=== PATIENT | female | born 1940 | race Caucasian/White ===

== ENCOUNTER → 2020-03-26 | Outpatient (CLI) | payer MEDICARE ==
--- NOTE | 2020-03-26 14:01 | XR ---
EXAMINATION TYPE: XR chest 2V DATE OF EXAM: 03/26/2020 COMPARISON: NONE HISTORY: Weakness and shortness of breath. TECHNIQUE: Frontal and lateral views of the chest are obtained. FINDINGS: There is chronic parenchymal changes bilaterally without suspicious focal air space opacit y, pleural effusion, or pneumothorax seen. The cardiac silhouette size is upper limits of normal wit h dual-lead pacemaker/defibrillator and atherosclerotic aorta. Cholecystectomy clips noted. The osse ous structures are intact. IMPRESSION: Chronic changes without acute pulmonary process.
== END | disposition home or self-care (01) ==
LOC: RADXRMAIN 13:32
PROVIDERS: ATTEND Family Medicine
DX: R06.09 Other forms of dyspnea (principal)
CPT/HCPCS: 71046

== ENCOUNTER → 2020-04-02 | Outpatient (CLI) | payer MEDICARE ==
[~2020-04-02] MED LIST: REGADENOSON 0.4 MG/5 ML SYRINGE IV PRN
--- NOTE | 2020-04-02 10:22 | ECHOF ---
Referral Reason:I10 hypertension, R06.09 Other forms of dyspnea MEASUREMENTS -------- HEIGHT: 154.9 cm WEIGHT: 52.2 kg BP: IVSd: 1.2 cm (0.6 - 1.1) LVIDd: 2.7 cm (3.9 - 5.3) LVPWd: 1.3 cm (0.6 - 1.1) IVSs: 1.5 cm LVIDs: 2.1 cm LVPWs: 1.8 cm LAESV Index (A-L): 16.18 ml/m Ao Diam: 3.0 cm (2.0 - 3.7) AV Cusp: 1.0 cm (1.5 - 2.6) LA Diam: 2.2 cm (2.7 - 3.8) MV EXCURSION: 7.820 mm (> 18.000) MV EF SLOPE: 36 mm/s (70 - 150) EPSS: 0.7 cm MV E Td: 0.46 m/s MV DecT: 288 ms MV A Td: 0.75 m/s MV E/A Ratio: 0.61 RAP: 5.00 mmHg RVSP: 25.94 mmHg FINDINGS -------- Pacerwire seen in RV and RA. This was a technically adequate study. The left ventricular size is normal. There is mild concentric left ventricular hypertrophy. There is mild global hypokinesis of LV . Overall left ventricular systolic function is mildly impaired w ith, an EF between 45 - 50 %. The right ventricle is normal in size. The left atrial size is normal. Normal LA size by volume 22+/-6 ml/m2. The right atrial size is normal. Interatrial and interventricular septum intact. There is mild aortic valve sclerosis. The mitral valve leaflets are mildly thickened. Mild mitral regurgitation is present. The tricuspid valve appears structurally normal. Mild tricuspid regurgitation present. Right vent ricular systolic pressure is normal at < 35 mmHg. Trace/mild (physiologic) pulmonic regurgitation. The aortic root size is normal. Normal inferior vena cava with normal inspiratory collapse consistent with estimated right atrial pre ssure of 5 mmHg. There is a small, generalized pericardial effusion present. CONCLUSIONS -------- 1. Pacerwire seen in RV and RA. 2. There is mild concentric left ventricular hypertrophy. 3. There is mild global hypokinesis of LV . 4. Overall left ventricular systolic function is mildly impaired with, an EF between 45 - 50 %. 5. There is mild aortic valve sclerosis. 6. Mild mitral regurgitation is present. 7. Mild tricuspid regurgitation present. 8. Trace/mild (physiologic) pulmonic regurgitation. 9. There is a small, generalized pericardial effusion present. DIGITAL PHOTO PRINTER: Viridiana Sparks RDCS
--- NOTE | 2020-04-02 12:00 | NM ---
EXAMINATION TYPE: NM stress lexiscan cardiolite DATE OF EXAM: 04/02/2020 COMPARISON: NONE HISTORY: I10 hypertension, R06.09 Other forms of dyspnea TECHNIQUE: After the intravenous administration of 9.56 mCi Tc 99m Sestamibi - Cardiolite resting SP ECT images acquired 50 minutes post injection. The patient received 0.4mg Lexiscan, 25.1 mCi Tc 99m Sestamibi - Stress images obtained [address] injection FINDINGS: Review of stress and rest SPECT images demonstrates decreased perfusion on stress imaging involving t he posteroseptal wall. I cannot exclude stress-induced ischemia. Gated analysis shows normal wall mot ion with an estimated left ventricular ejection fraction of 51 %. IMPRESSION: Decreased perfusion on stress imaging involving the posteroseptal wall. I cannot exclude stress-induc ed ischemia.
--- NOTE | 2020-04-02 12:15 | EST ---
EXERCISE STRESS DATE OF SERVICE: 04/02/2020 AGE: 80 SEX: Female HT: 61" WT: 115 lbs PROTOCOL: Lexiscan Cardiolite STAGE: DURATION OF EXERCISE: HEART RATE REST: 65 BLOOD PRESSURE REST: 111/52 MAXIMUM HEART RATE ACHIEVED: 67 MAXIMUM BLOOD PRESSURE: 137/67 85% MPHR: 117 100% MPHR: 138 METS: INDICATIONS: Chest pain. RESULTS: Baseline rhythm is a sinus mechanism with evidence of a dual-chamber pacemaker. Heart rate of 65. Baseline blood pressure 137/76 mmHg. Patient received injection of Lexiscan. Electrocardiograph monitoring revealed no evidence of diagnostic ischemic ST deviation. Cardiolite was injected per protocol. CONCLUSION: 1. Nondiagnostic electrocardiograph stress testing. 2. Nuclear images will be reported separately. MMODL / IJN: [id number] /
== END | disposition home or self-care (01) ==
LOC: RADNMMAIN 08:01
PROVIDERS: ATTEND Family Medicine
DX: I08.1 Rheumatic disorders of both mitral and tricuspid valves (principal); I31.3 Pericardial effusion (noninflammatory); I09.89 Other specified rheumatic heart diseases; R06.09 Other forms of dyspnea; I10 Essential (primary) hypertension
CPT/HCPCS: 93017; 93306; 78452; A9500; J2785

== ENCOUNTER → 2020-04-12 | Outpatient (CLI) | payer MEDICARE ==
[2020-04-12 13:28] LABS: HCT 42.8 % (34.0-46.0); HGB 13.5 gm/dL (11.4-16.0); MCH 30.4 pg (25.0-35.0); MCHC 31.5 g/dL (31.0-37.0); MCV 96.8 fL (80.0-100.0); Mean Platelet Volume 8.4; Platelet Count 141 k/uL (150-450); RBC 4.42 m/uL (3.80-5.40); RDW 13.3 % (11.5-15.5); WBC 7.6 k/uL (3.8-10.6)
[2020-04-12 13:35] LABS: Potassium 5.2 mmol/L (3.5-5.1)
== END | disposition home or self-care (01) ==
LOC: LABPAT 12:05
PROVIDERS: ATTEND Internal Medicine Cardiovascular Disease
DX: Z01.818 Encounter for other preprocedural examination (principal); R93.1 Abnormal findings on diagnostic imaging of heart and coronary circulation
CPT/HCPCS: 36415; 80051; 82565; 84520; 85027

== ENCOUNTER 2020-04-19 07:22 | Day surgery (SDC) | payer MEDICARE ==
[2020-04-17 11:58] VITALS: BMI 22.1
[~2020-04-19 07:22] MED LIST changes: +ALPRAZolam 0.25 MG TAB PO PRN; +ALPRAZolam 0.5 MG TAB PO PRN; +ASPIRIN 325 MG TAB PO STA; +ATORVASTATIN 80 MG TAB PO STA; +NITROGLYCERIN SL TABS 0.4 MG TAB SUBLINGUAL PRN; -REGADENOSON 0.4 MG/5 ML SYRINGE IV PRN; +SODIUM CHLORIDE 0.9% 1,000 ML in EMPTY BAG 1 BAG IV ONE
[2020-04-19 07:54] VITALS: RESP 16; TEMP 97.9
[2020-04-19] MEDS ORDERED: fentaNYL (PF) 50 MCG/ML 2 ML AMP IVP ONE (09:19)
[2020-04-19] MEDS ORDERED: MIDAZOLAM 2 MG/2 ML VIAL IVP ONE (09:19)
[2020-04-19] MEDS ORDERED: LIDOCAINE 1% INJ 10MG/ML (20 ML MDV) SQ ONE (09:21)
[2020-04-19] MEDS ORDERED: IOPAMIDOL-370 125ML BTL INJ ONE (09:32)
[2020-04-19] MEDS ORDERED: SODIUM CHLORIDE 0.9% 1,000 ML IV SCH (09:45)
[2020-04-19] MEDS ORDERED: RX INFO: IV CONTRAST WAS GIVEN 1 EACH MISC MISCELLANE PRN (09:45)
--- NOTE | 2020-04-19 11:59 | CC ---
CARDIAC CATHETERIZATION REPORT INDICATION: Abnormal stress test. PROCEDURE NOTE: After obtaining informed consent, left heart catheterization and coronary angiogram are performed via the right femoral artery using standard Stephanie catheters. Patient tolerated the procedure well without any obvious immediate complications. A femoral angiogram was performed and Angio-Seal was deployed for hemostasis. Patient received moderate conscious sedation and total sedation time was 12 minutes. FINDINGS: 1. HEMODYNAMICS: Left ventricular end-diastolic pressure is 8 to 12 mm. There is no significant gradient across the aortic valve. 2. LEFT VENTRICULOGRAM: Left ventriculogram is not performed. 3. ANGIOGRAPHIC DATA: Left Main Coronary Artery: Left main coronary artery appears calcified but is free of significant stenosis. Divides into left anterior descending coronary artery and circumflex coronary artery. LAD and its branches, circumflex coronary artery and its branches are free of significant stenosis. CONCLUSION: 1. No significant coronary artery disease. 2. Normal left ventricular end-diastolic pressures. PLAN: Patient is doing well. Her stress test is a false positive stress test. I will continue her on current medications and follow up with me in a week's time. MMODL / IJN: [id number] /
[2020-04-19 16:25] VITALS: BP 114/60; PULSE 60
== END 2020-04-19 14:45 | disposition home or self-care (01) ==
LOC: CATHCVL 07:22
PROVIDERS: ATTEND Internal Medicine Cardiovascular Disease
DX: I25.10 Atherosclerotic heart disease of native coronary artery without angina pectoris (principal); I25.84 Coronary atherosclerosis due to calcified coronary lesion; R94.39 Abnormal result of other cardiovascular function study; R60.0 Localized edema; I10 Essential (primary) hypertension; E78.5 Hyperlipidemia, unspecified; Z82.49 Family history of ischemic heart disease and other diseases of the circulatory system; Z95.0 Presence of cardiac pacemaker; Z79.82 Long term (current) use of aspirin; Z79.890 Hormone replacement therapy; Z79.899 Other long term (current) drug therapy
CPT/HCPCS: 93458; 84132; C1760; C1894; C1769; J2250; J2001; J3010; Q9967

== ENCOUNTER → 2020-05-28 | Outpatient (CLI) | payer MEDICARE ==
--- NOTE | 2020-05-29 16:07 | BD ---
EXAMINATION TYPE: Axial Bone Density DATE OF EXAM: 05/28/2020 COMPARISON: NONE CLINICAL HISTORY: Postmenopausal without hormonal replacement therapy Height: 60 IN Weight: 113 LBS RISK FACTORS HISTORY OF: Active: LIMITED Postmenopausal woman: APPROX AGE 48 Frequent falls: YES KNEES GIVE OUT MEDICATIONS: Thyroid Medications: YES Which medication: Levothyroxine How Lon+ YEARS Additional Medications: CALCIUM, AMLODIPINE, ASPIRIN, FUROSEMIDE, LEVOTHYROXINE,METOPROLOL, ROSUVASTA TIN, TRIAMCINLONE, PRESERVISION, CLEAR LAX EXAM MEASUREMENTS: Bone mineral densitometry was performed using the [employer] System. Bone mineral density as measured about the Lumbar spine is: ----- L1-L4(G/cm2): 1.186 T Score Values are as follows: ----- L2: 0.7 ----- L3: 0.8 ----- L4: -0.6 ----- L1-L4: 0.0 Bone mineral density BASELINE Bone mineral density about the R hip (g/cm2): 0.680 Bone mineral density about the L hip (g/cm2): 0.658 T Score values are as follows: -----R Neck: -2.6 -----L Neck: -2.7 -----R Total: -3.0 -----L Total: -3.1 Bone mineral density BASELINE IMPRESSION: Osteoporosis (T Score less than -2.5). There is increased fracture risk and therapy is usually indicated based on age. Re-Screen 1-2 years. NOTE: T-SCORE=SD OF THE YOUNG ADULT MEAN.
--- NOTE | 2020-05-30 10:14 | MM ---
Reason for exam: screening (asymptomatic). History: Patient is postmenopausal. Physical Findings: A clinical breast exam by your physician is recommended on an annual basis and results should be correlated with mammographic findings. MG 3D Screening Mammo W/Cad Bilateral CC and MLO view(s) were taken. There are scattered fibroglandular densities. No significant changes when compared with prior studies. ASSESSMENT: Negative, BI-RAD 1 RECOMMENDATION: Routine screening mammogram of both breasts in 1 year.
== END | disposition home or self-care (01) ==
LOC: RADBDWWP 15:57
PROVIDERS: ATTEND Family Medicine
DX: Z12.31 Encounter for screening mammogram for malignant neoplasm of breast (principal); M81.0 Age-related osteoporosis without current pathological fracture
CPT/HCPCS: 77063; 77067; 77080

== ENCOUNTER 2020-08-21 17:08 | Inpatient (IN) | payer MEDICARE ==
--- NOTE | 2020-08-21 17:53 | ED ---
General Adult HPI - General Chief complaint: Fall Stated complaint: Fall Time Seen by Provider: 08/21/20 17:29 Source: patient, EMS, RN notes reviewed, old records reviewed Mode of arrival: EMS - History of Present Illness Initial comments: 80-year-old female presents status post fall with head injury. Patient believes that her defibrillator had gone off she felt weak, and fell backwards striking her head. Her main complaint is headache. She denies any back pain. Denies c hest pain or abdominal pain. Denied any preceding palpitations. No nausea or vomiting. - Related Data Home Medications Medication Instructions Recorded Confirmed Furosemide [Lasix] 20 mg PO DAILY 04/17/20 08/21/20 Levothyroxine Sodium [Synthroid] 25 mcg PO DAILY 04/17/20 08/21/20 Rosuvastatin Calcium [Crestor] 5 mg PO DAILY 04/17/20 08/21/20 Amlodipine Besylate/Valsartan 1 each PO DAILY 04/19/20 08/21/20 [Amlodipine-Valsartan 10-320 mg] Metoprolol Succinate (ER) [Toprol 50 mg PO DAILY 08/21/20 08/21/20 XL] Risedronate Sodium [Actonel] 150 mg PO Q28D 08/21/20 08/21/20 Allergies Allergy/AdvReac Type Severity Reaction Status Date / Time No Known Allergies Allergy Verified 08/21/20 18:52 Review of Systems ROS Statement: Those systems with pertinent positive or pertinent negative responses have been documented in the HPI. ROS Other: All systems not noted in ROS Statement are negative. Past Medical History Past Medical History: Diabetes Mellitus, Hypertension, Liver Disease, Thyroid Disorder Additional Past Medical History / Comment(s): SOB w/exertion, just moved here from [place] in Jan., was in hospital there for had irregular heart beat, had pacemaker inserted, uses walker, used to take diabetic meds in past in 2017 approx. 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 Past Anesthesia/Blood Transfusion Reactions: No Reported Reaction Type of Cardiac Device: Permanent Pacemaker Device Placement Date:: 2019 Past Psychological History: No Psychological Hx Reported Smoking Status: Never smoker General Exam General appearance: alert, in no apparent distress Head exam: Present: atraumatic, normocephalic, other ( no repairable laceration.) Eye exam: Present: normal appearance, PERRL ENT exam: Present: normal exam Neck exam: Present: normal inspection, other (C-collar placed by EMS) Cardiovascular Exam: Present: regular rate, normal rhythm GI/Abdominal exam: Present: soft. Absent: distended, tenderness, guarding Extremities exam: Present: normal inspection, normal capillary refill. Absent: pedal edema, calf tenderness Neurological exam: Present: alert, oriented X3, CN II-XII intact. Absent: motor sensory deficit Psychiatric exam: Present: normal affect, normal mood Skin exam: Present: warm, dry, intact. Absent: cyanosis, diaphoretic Course Vital Signs 08/21/20 08/21/20 17:16 18:57 Temperature 97.8 F Pulse Rate 81 82 Respiratory 18 18 Rate Blood Pressure 163/88 165/84 O2 Sat by Pulse 100 100 Oximetry - Reevaluation(s) Reevaluation #1: 08/21/20 20:16 Patient and daughter are uncertain of what brand pacemaker defibrillator. Daughter is attempting to obtain the info. EKG Findings - EKG Comments: EKG Findings:: EKG obtained at 249, ventricular paced rhythm with PVC, rate of 81, QRS duration 156, QTC 522. EKG obtained at 1750 narrow complex rhythm, rate of 78, sinus rhythm or accelerated junctional rhythm QRS duration 118, QTC 440, PVC present Medical Decision Making - Medical Decision Making 80-year-old female with suspected defibrillator by AICD and subsequent fall with head injury. Head CT performed, showing several calcified meningiomas but no acute intracranial hemorrhage or mass effect. Cervical spine negative for fract ure subluxation. Chest x-ray and pale pelvis x-ray are negative for traumatic injury. Patient has had episodes of paced rhythm, with some runs of V. tach, no sustained ventricular tachycardia. I did discuss case. With the admitting team, Corwin borges for Dr. Gorman as well as Dr. Gabbie borges for cardiology. Recommends an additional dose of metoprolol XL. 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 Patient will be monitored on telemetry. - Lab Data Result diagrams: 08/21/20 18:51 08/21/20 18:51 Lab Results 08/21/20 08/21/20 08/21/20 Range/Units 18:51 18:51 18:51 WBC 7.3 (3.8-10.6) k/uL RBC 4.22 (3.80-5.40) m/uL Hgb 13.3 (11.4-16.0) gm/dL Hct 39.9 (34.0-46.0) % MCV 94.5 (80.0-100.0) fL MCH 31.5 (25.0-35.0) pg MCHC 33.4 (31.0-37.0) g/dL RDW 12.8 (11.5-15.5) % Plt Count 144 L (150-450) k/uL MPV 8.5 Neutrophils % 71 % Lymphocytes % 18 % Monocytes % 7 % Eosinophils % 3 % Basophils % 0 % Neutrophils # 5.2 (1.3-7.7) k/uL Lymphocytes # 1.3 (1.0-4.8) k/uL Monocytes # 0.5 (0-1.0) k/uL Eosinophils # 0.2 (0-0.7) k/uL Basophils # 0.0 (0-0.2) k/uL PT 9.8 (9.0-12.0) sec INR 0.9 (<1.2) APTT 20.6 L (22.0-30.0) sec Sodium 145 (137-145) mmol/L Potassium 5.4 H (3.5-5.1) mmol/L Chloride 112 H (98-107) mmol/L Carbon Dioxide 26 (22-30) mmol/L Anion Gap 7 mmol/L BUN 36 H (7-17) mg/dL Creatinine 0.71 (0.52-1.04) mg/dL Est GFR (CKD-EPI)AfAm >90 (>60 ml/min/1.73 sqM) Est GFR (CKD-EPI)NonAf 80 (>60 ml/min/1.73 sqM) Glucose 140 H (74-99) mg/dL Calcium 10.3 H (8.4-10.2) mg/dL Magnesium 2.4 H (1.6-2.3) mg/dL Total Bilirubin 0.5 (0.2-1.3) mg/dL AST 34 (14-36) U/L ALT 19 (4-34) U/L Alkaline Phosphatase 103 (38-126) U/L Troponin I (0.000-0.034) ng/mL Total Protein 7.2 (6.3-8.2) g/dL Albumin 4.4 (3.5-5.0) g/dL 08/21/20 Range/Units 18:51 WBC (3.8-10.6) k/uL RBC (3.80-5.40) m/uL Hgb (11.4-16.0) gm/dL Hct (34.0-46.0) % MCV (80.0-100.0) fL MCH (25.0-35.0) pg MCHC (31.0-37.0) g/dL RDW (11.5-15.5) % Plt Count (150-450) k/uL MPV Neutrophils % % Lymphocytes % % Monocytes % % Eosinophils % % Basophils % % Neutrophils # (1.3-7.7) k/uL Lymphocytes # (1.0-4.8) k/uL Monocytes # (0-1.0) k/uL Eosinophils # (0-0.7) k/uL Basophils # (0-0.2) k/uL PT (9.0-12.0) sec INR (<1.2) APTT (22.0-30.0) sec Sodium (137-145) mmol/L Potassium (3.5-5.1) mmol/L Chloride (98-107) mmol/L Carbon Dioxide (22-30) mmol/L Anion Gap mmol/L BUN (7-17) mg/dL Creatinine (0.52-1.04) mg/dL Est GFR (CKD-EPI)AfAm (>60 ml/min/1.73 sqM) Est GFR (CKD-EPI)NonAf (>60 ml/min/1.73 sqM) Glucose (74-99) mg/dL Calcium (8.4-10.2) mg/dL Magnesium (1.6-2.3) mg/dL Total Bilirubin (0.2-1.3) mg/dL AST (14-36) U/L ALT (4-34) U/L Alkaline Phosphatase (38-126) U/L Troponin I 0.028 (0.000-0.034) ng/mL Total Protein (6.3-8.2) g/dL Albumin (3.5-5.0) g/dL Disposition Clinical Impression: Fall, Ventricular tachycardia Disposition: ADMITTED IP TO THIS [facility] Condition: Stable Is patient prescribed a controlled substance at d/c from ED?: No Referrals: Edin Gorman MD [Primary Care Provider] - 1-2 days Decision to Admit Reason: Admit from EC Decision Date: 08/21/20 Decision Time: 20:21
[2020-08-21 18:56] LABS: Basophils % (A) 0 %; Eosinophils # (A) 0.2 k/uL (0-0.7); Eosinophils % (A) 3 %; HCT 39.9 % (34.0-46.0); HGB 13.3 gm/dL (11.4-16.0); Lymphocytes # (A) 1.3 k/uL (1.0-4.8); Lymphocytes % (A) 18 %; MCH 31.5 pg (25.0-35.0); MCHC 33.4 g/dL (31.0-37.0); MCV 94.5 fL (80.0-100.0); Mean Platelet Volume 8.5; Monocytes # (A) 0.5 k/uL (0-1.0); Monocytes % (A) 7 %; Neutrophils # (A) 5.2 k/uL (1.3-7.7); Neutrophils % (A) 71 %; Platelet Count 144 k/uL (150-450); RBC 4.22 m/uL (3.80-5.40); RDW 12.8 % (11.5-15.5); WBC 7.3 k/uL (3.8-10.6)
[2020-08-21 19:06] LABS: ALT 19 U/L (4-34); AST 34 U/L (14-36); African American GFR (CKD) >90 (>60 ml/min/1.73 sqM); Albumin 4.4 g/dL (3.5-5.0); Alkaline Phosphatase 103 U/L (38-126); Anion Gap 7 mmol/L; Blood Urea Nitrogen 36 mg/dL (7-17); Calcium 10.3 mg/dL (8.4-10.2); Carbon Dioxide 26 mmol/L (22-30); Chloride 112 mmol/L (98-107); Glucose 140 mg/dL (74-99); Magnesium 2.4 mg/dL (1.6-2.3); Non-African American GFR(CKD) 80 (>60 ml/min/1.73 sqM); Potassium 5.4 mmol/L (3.5-5.1); Sodium 145 mmol/L (137-145); Total Bilirubin 0.5 mg/dL (0.2-1.3); Total Protein 7.2 g/dL (6.3-8.2)
--- NOTE | 2020-08-21 19:07 | CT ---
EXAMINATION TYPE: CT brain katie garcia con DATE OF EXAM: 08/21/2020 COMPARISON: NONE HISTORY: Fall injury with headache and neck pain. CT DLP: 1135.8 mGycm. Automated Exposure Control for Dose Reduction was Utilized. TECHNIQUE: CT scan of the head and cervical spine are performed without contrast. FINDINGS: There is no acute intracranial hemorrhage or midline shift identified. Mild ventricular a nd sulcal prominence. More moderate low-attenuation in the deep and periventricular white matter. Th ere is 2.4 x 1.9 cm posterior calcified or ossified left occipital lesion axial image 26 suspected os sified meningioma. Additional 1.6 cm calcification or ossification along the anterior hemispheric fis sure could reflect a second meningioma axial image 32. Hyperostosis frontalis. Visualized sinuses are clear. Globes are intact bilaterally. Calvarium is intact. Cervical spine is visualized in its entirety from C1 through upper thoracic levels and demonstrates s atisfactory alignment without evidence of acute fracture or dislocation. Prevertebral soft tissue ap pears within normal limits. The C1-C2 articulation is within normal limits on the coronal images. V ertebral body heights are maintained. There is moderate disc space narrowing and spurring C5-C6 and C 6-C7 levels. Posterior spurring effaces the anterior thecal sac at these levels. Axial images show so me multilevel uncovertebral facet degenerative changes. Asymmetric heterogeneous left thyroid enlarge ment. Mild diffuse subcutaneous edema. Scattered subcentimeter lymph nodes throughout the neck bilate rally. Lung apices show no pneumothorax. IMPRESSION: 1. There is no acute fracture or dislocation evident in the cervical spine. 2. No acute intracranial hemorrhage or midline shift is seen.
[2020-08-21 19:12] LABS: INR 0.9 (<1.2); Partial Thromboplastin Time 20.6 sec (22.0-30.0); Prothrombin Time 9.8 sec (9.0-12.0)
[2020-08-21] MEDS ORDERED: SODIUM CHLORIDE 0.9% 500 ML 500 ML IV ONE (19:26)
[2020-08-21] MEDS ORDERED: METOPROLOL SUCCINATE (ER) 50 MG TAB.ER.24H PO STA (19:58)
--- NOTE | 2020-08-21 20:05 | XR ---
EXAMINATION TYPE: XR chest 2V DATE OF EXAM: 08/21/2020 COMPARISON: Chest x-ray March 26, 2020 HISTORY: Dysrhythmia. TECHNIQUE: Frontal and lateral views of the chest are obtained. FINDINGS: There is chronic parietal change bilaterally without suspicious focal air space opacity, p leural effusion, or pneumothorax seen. The cardiac silhouette size is stable and mildly enlarged wit h dual lead pacemaker/defibrillator and atherosclerotic aorta. The lead position appears stable. Osse ous structures are demineralized. Cholecystectomy clips noted on lateral view. IMPRESSION: Chronic changes and cardiomegaly without acute pulmonary process.
--- NOTE | 2020-08-21 20:06 | XR ---
EXAMINATION TYPE: XR pelvis AP view DATE OF EXAM: 08/21/2020 CLINICAL HISTORY: Fall injury with pain. TECHNIQUE: A single AP view of the pelvis is obtained. COMPARISON: None. FINDINGS: [place] osseous structures are demineralized. There is no acute fracture/dislocation eviden t in the pelvis. [id number] axial joint space loss right hip with moderate to severe axial join t space loss left hip. Pubic symphysis is intact. Sacroiliac joints preserved. Bilateral pelvic phleb oliths. Moderate to severe rectal fecal prominence noted. IMPRESSION: There is no acute fracture or dislocation in the pelvis.
[2020-08-21] MEDS: SODIUM CHLORIDE 0.9% 1,000 ML IV SCH (21:07)
[2020-08-21] MEDS ORDERED: FUROSEMIDE 20 MG TAB PO SCH (21:15)
[2020-08-21] MEDS ORDERED: NITROGLYCERIN SL TABS 0.4 MG TAB SUBLINGUAL PRN (22:03)
[2020-08-21] MEDS ORDERED: MORPHINE SULFATE 4 MG/ML SYRINGE IV PRN (22:03)
[2020-08-22] MEDS ORDERED: HEPARIN SODIUM 1,000 UN/ML (10ML VL) IV ONE (01:16)
[2020-08-22] MEDS ORDERED: HEPARIN SODIUM 1,000 UN/ML (10ML VL) IV PRN (01:16)
[2020-08-22] MEDS ORDERED: DEXTROSE 5% IN WATER 100 ML with AMIODARONE 150 MG IV ONE (01:17)
[2020-08-22] MEDS ORDERED: AMIODARONE 360 MG in DEXTROSE 5% IN WATER 200 ML IV ONE ×2 (01:26)
[2020-08-22] MEDS ORDERED: HEPARIN SOD,PORK IN 0.45% NACL 25,000 UNIT in 0.45% NACL 1 250ML.BAG IV SCH (01:30)
[2020-08-22] MEDS: LEVOTHYROXINE 25 MCG TAB PO SCH (06:26)
--- NOTE | 2020-08-22 07:10 | XR ---
EXAMINATION TYPE: XR chest 2V DATE OF EXAM: 08/22/2020 COMPARISON: Chest x-ray from yesterday HISTORY: Shortness of breath. TECHNIQUE: Frontal and lateral views of the chest are obtained. FINDINGS: There is background chronic parenchyma change without suspicious focal air space opacity, pleural effusion, or pneumothorax seen. The cardiac silhouette size is enlarged with dual lead pacem pearl/defibrillator redemonstrated and atherosclerotic aorta. Degenerative change bilateral glenohumer al joints.. IMPRESSION: Cardiomegaly and chronic parenchymal changes without acute pulmonary process. No signifi cant change from prior.
[2020-08-22] MEDS ORDERED: AMIODARONE 450 MG in DEXTROSE 5% IN WATER 250 ML IV SCH ×2 (07:25)
[2020-08-22 08:36] LABS: Basophils % (A) 0 %; Eosinophils # (A) 0.2 k/uL (0-0.7); Eosinophils % (A) 2 %; HCT 37.3 % (34.0-46.0); HGB 12.5 gm/dL (11.4-16.0); Lymphocytes # (A) 1.3 k/uL (1.0-4.8); Lymphocytes % (A) 17 %; MCH 32.1 pg (25.0-35.0); MCHC 33.6 g/dL (31.0-37.0); MCV 95.7 fL (80.0-100.0); Mean Platelet Volume 8.6; Monocytes # (A) 0.6 k/uL (0-1.0); Monocytes % (A) 8 %; Neutrophils # (A) 5.3 k/uL (1.3-7.7); Neutrophils % (A) 71 %; Platelet Count 130 k/uL (150-450); RDW 12.6 % (11.5-15.5); WBC 7.5 k/uL (3.8-10.6)
[2020-08-22] MEDS: ATORVASTATIN 10 MG TAB PO SCH (08:44)
[2020-08-22] MEDS ORDERED: METOPROLOL SUCCINATE (ER) 50 MG TAB.ER.24H PO SCH (09:00)
[2020-08-22] MEDS ORDERED: ASPIRIN 325 MG TAB PO SCH (09:00)
[2020-08-22 09:13] LABS: ALT 15 U/L (4-34); AST 30 U/L (14-36); African American GFR (CKD) >90 (>60 ml/min/1.73 sqM); Albumin 3.4 g/dL (3.5-5.0); Alkaline Phosphatase 82 U/L (38-126); Anion Gap 4 mmol/L; Blood Urea Nitrogen 22 mg/dL (7-17); Calcium 9.2 mg/dL (8.4-10.2); Carbon Dioxide 22 mmol/L (22-30); Chloride 114 mmol/L (98-107); Glucose 118 mg/dL (74-99); Magnesium 1.9 mg/dL (1.6-2.3); Non-African American GFR(CKD) 87 (>60 ml/min/1.73 sqM); Potassium 4.1 mmol/L (3.5-5.1); Sodium 140 mmol/L (137-145); Total Bilirubin 0.7 mg/dL (0.2-1.3)
--- NOTE | 2020-08-22 11:01 | ECHOF ---
Referral Reason:VT MEASUREMENTS -------- HEIGHT: 152.4 cm WEIGHT: 50.8 kg BP: 162/73 RVIDd: 2.4 cm (< 3.3) IVSd: 1.1 cm (0.6 - 1.1) LVIDd: 3.5 cm (3.9 - 5.3) LVPWd: 1.4 cm (0.6 - 1.1) IVSs: 1.9 cm LVIDs: 2.1 cm LVPWs: 1.9 cm Ao Diam: 3.5 cm (2.0 - 3.7) AV Cusp: 1.8 cm (1.5 - 2.6) LA Diam: 3.0 cm (2.7 - 3.8) MV EXCURSION: 13.189 mm (> 18.000) MV EF SLOPE: 75 mm/s (70 - 150) EPSS: 0.6 cm MV E Td: 0.47 m/s MV DecT: 218 ms MV A Td: 0.95 m/s MV E/A Ratio: 0.50 RAP: 5.00 mmHg RVSP: 19.52 mmHg FINDINGS -------- Sinus rhythm. Pacerwire seen in RV and RA. This was a technically difficult study with suboptimal views. The left ventricular size is normal. Left ventricular wall thickness is normal. Overall left vent ricular systolic function is moderately impaired with, an EF between 35 - 40 %. Left ventricular fi llimg pressure cannot be estimated due to paced rhythm. Mid anteroseptal LV wall motion is hypokine tic. Apical lateral LV wall motion is akinetic. Apical septum LV wall motion is akinetic. The right ventricle is normal in size. The left atrial size is normal. The right atrial size is normal. Lumason used There is mild aortic valve sclerosis. Mild mitral annular calcification present. Mild mitral regurgitation is present. The tricuspid valve appears structurally normal. Mild tricuspid regurgitation present. Right vent ricular systolic pressure is normal at < 35 mmHg. There is no pulmonic regurgitation present. The aortic root size is normal. IVC Not well visulized. There is no pericardial effusion. CONCLUSIONS -------- 1. Pacerwire seen in RV and RA. 2. This was a technically difficult study with suboptimal views. 3. Left ventricular wall thickness is normal. 4. Overall left ventricular systolic function is moderately impaired with, an EF between 35 - 40 %. 5. Mid anteroseptal LV wall motion is hypokinetic. 6. Apical lateral LV wall motion is akinetic. 7. Apical septum LV wall motion is akinetic. 8. The left atrial size is normal. 9. There is mild aortic valve sclerosis. 10. Mild mitral regurgitation is present. 11. Mild tricuspid regurgitation present. 12. There is no pericardial effusion. GENOMICS SCIENTIST: Viridiana Sparks RDCS
--- NOTE | 2020-08-22 12:02 | P.CRDCN ---
History of Present Illness History of present illness: HISTORY OF PRESENTING ILLNESS This is a pleasant 80-year-old female past medical history significant for hypertension, dyslipidemia, hypothyroidism, dual chamber AICD implantation. She used to live in [place], she had her device implanted in [place]. She states they placed an AICD in December 2019 because her "heart was beating too fast" in December 2019. She follows in the office with Dr. Rob. We have been asked to see in consultation for ventricular tachycardia. Was going for a walk yesterday, she started to get half way up her ramp up to her house. She felt a sensation i her chest "felt as if something was going up and then down" and she fell backwards. She did not lose consciousness. EMS was called and patient was brought to the emergency department. She states that this feeling has been happening frequently. She does have episodes of dyspnea on exertion. Denies symptoms of PND or Orthopnea. She is very hard of hearing. She denies shortness of breath, palpitations, chest pain, nausea, vomiting, diaphoresis, abdominal pain, lightheadedness, dizziness, feelings of pre-syncope, denies loss of consciousness. Denies history of diabetes, ND, or stroke. In March 2020 patient has a positive Lexiscan stress test. She underwent cardiac catheterization Dr. Rob on 04/19/2020 which revealed no significant obstructive CAD. In the emergency department patient received an extra dose of metoprolol succinate 50 mg, 1 L bolus, IV fluids at 75cc/hr. Overnight, around 2 AM patient went into ventricular tachycardia, she was given 150 mg bolus of amiodarone and started on amiodarone drip at 1 mg/min, and heparin drip. Device interrogation reveals Since January 26, 2002- patient has had 36 treated episodes VT/VF, 15 episodes of monitored VT, 15 episodes of non- sustained VT, 25 episodes of SVT. Treated episodes are mostly ATP, however, she does occasionally have shocks. 2 Shocks noted yesterday 08/21 at 16:38. DIAGNOSTICS EKG reveals ventricular paced rhythm, heart rate 81 with PVCs. Telemetry tracings indicate- atrial-ventricular paced, with episode of ventricular tachycardia or cardiac started at 1:57 AM Chest xray cardiac silhouette size is stable, mildly enlarged with dual-lead pacemaker/defibrillator and atherosclerotic aorta. Chronic bilateral changes bilaterally. Head/cervical spine CT with no acute fracture dislocation, no acute intracranial hemorrhage or midline shift. Revealed ossified meningioma. Pelvis Xray- No acute fracture of dislocation, moderate to severe atrophy, prominence, mild to moderate joint space loss of right hip with moderate to severe joint space loss of left hip Laboratory reviewed, Pro BNP 851, troponin 0.02-->0.05-->0.05, sodium 140, potassium 5.4-->4.1, BUN 22, serum creatinine 0.57, magnesium 2.4-->1.9 04/02/2020 echocardiogram EF between 45-50%, mild mitral regurgitation, mild tricuspid regurgitation, paced C RV and RA, mild global hypokinesis of LV 04/02/2020 Lexiscan stress test revealed decreased perfusion on stress imaging involving the posterior septal wall. Stress-induced ischemia cannot be excluded 04/19/2020 Cardiac catheterization- no significant coronary artery disease, normal left ventricular end-diastolic pressures. Current home daily cardiac medications include amlodipinevalsartan 25856 milligrams, Lasix 20 mg daily, metoprolol succinate 50 mg daily, rosuvastatin 5 mg daily REVIEW OF SYSTEMS At the time of my exam: CONSTITUTIONAL: Denies fever or chills. CARDIOVASCULAR: +chest sensation, Denies chest pain, shortness of breath, orthopnea, PND or palpitations. RESPIRATORY: Denies cough. GASTROINTESTINAL: Denies abdominal pain, diarrhea, constipation, nausea or vomiting. MUSCULOSKELETAL: Denies myalgias. NEUROLOGIC: Denies numbness, tingling, headacbe or weakness. ENDOCRINE: Denies fatigue, weight change, polydipsia or polyurina. GENITOURINARY: Denies burning, hematuria or urgency with micturation. HEMATOLOGIC: Denies history of anemia or bleeding. PHYSICAL EXAMINATION Blood pressure 160/79 heart rate 65 afebrile and maintaining oxygen saturation 99% on room air CONSTITUTIONAL: No apparent distress. HEENT: Head is normocephalic. Pupils are equal, round. Sclerae anicteric. Mucous membranes of the mouth are moist. No JVD. No carotid bruit. CHEST EXAMINATION: Lungs are clear to auscultation. No chest wall tenderness is noted on palpation or with deep breathing. HEART EXAMINATION: Regular rate and rhythm. S1, S2 heard. No murmurs, gallops or rub. ABDOMEN: Soft, nontender. Positive bowel sounds. EXTREMITIES: 2+ peripheral pulses, no lower extremity edema and no calf tenderness. NEUROLOGIC EXAMINATION: Patient is awake, alert and oriented x3. ASSESSMENT Ventricular Tachycardia Fall Elevated troponin, most likely due to Vtach, patient with recent cardiac catheterization in 08/2020 with no significant coronary artery disease History of Hypertension Hyperkalemia- resolved Hypermagnesemia- resolved PLAN Repeat echocardiogram ordered, will follow up on results Increase metoprolol succinate to 100mg daily Continue amiodarone drip Continue statin Will restart patient's amlodipine-valsartan Stop heparin drip Start daily aspirin 81mg daily Continue cardiac telemetry We will consult Dr. Prabhakar Further recommendations following clinical course Nurse Practitioner note has been reviewed, I agree with a documented findings and plan of care. Patient was seen and examined. Past Medical History Past Medical History: Hypertension, Liver Disease, Thyroid Disorder Additional Past Medical History / Comment(s): pt states she was a diabetic in the past but no longer takes medications or checks her blood sugar. History of Any Multi-Drug Resistant Organisms: None Reported Past Surgical History: Pacemaker Additional Past Surgical History / Comment(s): thyroid surg., pacemaker dec 2019 Past Anesthesia/Blood Transfusion Reactions: No Reported Reaction Type of Cardiac Device: Permanent Pacemaker Device Placement Date:: 2019 Past Psychological History: No Psychological Hx Reported Smoking Status: Never smoker Past Alcohol Use History: None Reported Past Drug Use History: None Reported Medications and Allergies Home Medications Medication Instructions Recorded Confirmed Type Furosemide [Lasix] 20 mg PO DAILY 04/17/20 08/21/20 History Levothyroxine Sodium [Synthroid] 25 mcg PO DAILY 04/17/20 08/21/20 History Rosuvastatin Calcium [Crestor] 5 mg PO DAILY 04/17/20 08/21/20 History Amlodipine Besylate/Valsartan 1 each PO DAILY 04/19/20 08/21/20 History [Amlodipine-Valsartan 10-320 mg] Metoprolol Succinate (ER) [Toprol 50 mg PO DAILY 08/21/20 08/21/20 History XL] Risedronate Sodium [Actonel] 150 mg PO Q28D 08/21/20 08/21/20 History Allergies Allergy/AdvReac Type Severity Reaction Status Date / Time No Known Allergies Allergy Verified 08/21/20 18:52 Physical Exam Vitals: Vital Signs Temp Pulse Pulse Resp BP BP Pulse Ox 08/22/20 03:32 97.6 F 66 18 162/73 99 08/22/20 00:13 69 16 08/21/20 23:48 98.4 F 69 16 145/96 96 08/21/20 22:30 65 16 157/69 99 08/21/20 22:16 98.4 F 69 16 145/96 96 08/21/20 18:57 82 18 165/84 100 08/21/20 17:16 97.8 F 81 18 163/88 100 Intake and Output 08/21/20 08/22/20 08/22/20 22:59 06:59 14:59 Output Total 1300 Balance -1300 Output: Urine 1300 Other: Voiding Method Bedpan # Voids 1 # Bowel Movements 1 Weight 51.256 kg 51 kg Results 08/22/20 07:47 08/22/20 07:47 Cardiac Enzymes 08/21/20 08/21/20 08/21/20 Range/Units 18:51 18:51 23:12 AST 34 (14-36) U/L Troponin I 0.028 0.054 H* (0.000-0.034) ng/mL 08/22/20 Range/Units 01:57 AST (14-36) U/L Troponin I 0.057 H* (0.000-0.034) ng/mL Coagulation 08/21/20 Range/Units 18:51 PT 9.8 (9.0-12.0) sec APTT 20.6 L (22.0-30.0) sec CBC 08/21/20 Range/Units 18:51 WBC 7.3 (3.8-10.6) k/uL RBC 4.22 (3.80-5.40) m/uL Hgb 13.3 (11.4-16.0) gm/dL Hct 39.9 (34.0-46.0) % Plt Count 144 L (150-450) k/uL Comprehensive Metabolic Panel 08/21/20 Range/Units 18:51 Sodium 145 (137-145) mmol/L Potassium 5.4 H (3.5-5.1) mmol/L Chloride 112 H (98-107) mmol/L Carbon Dioxide 26 (22-30) mmol/L BUN 36 H (7-17) mg/dL Creatinine 0.71 (0.52-1.04) mg/dL Glucose 140 H (74-99) mg/dL Calcium 10.3 H (8.4-10.2) mg/dL AST 34 (14-36) U/L ALT 19 (4-34) U/L Alkaline Phosphatase 103 (38-126) U/L Total Protein 7.2 (6.3-8.2) g/dL Albumin 4.4 (3.5-5.0) g/dL Current Medications Generic Name Dose Route Start Last Admin Trade Name Freq PRN Reason Stop Dose Admin Aspirin 325 mg 08/22/20 09:00 Aspirin 325 Mg Tab PO DAILY [facility] Atorvastatin Calcium 10 mg 08/22/20 09:00 Atorvastatin 10 Mg Tab PO DAILY [facility] Heparin Sodium (Porcine) 0 unit 08/22/20 01:16 Heparin Sodium 1,000 Un/Ml (10ml Vl) IV PER PROTOCOL PRN Low PTT Protocol Sodium Chloride 1,000 mls @ 75 mls/hr 08/21/20 19:30 08/21/20 21:07 Saline 0.9% IV 75 mls/hr .[id number] DAIANA Administration Heparin Sodium/Sodium Chloride 250 mls @ 6.151 mls/hr 08/22/20 01:30 08/22/20 02:25 25,000 unit/ Sodium Chloride IV 12 units/kg/hr .Q24H DAIANA 6.151 mls/hr Administration Protocol 12 UNITS/KG/HR Amiodarone HCl 450 mg/ 250 mls @ 16.667 mls/hr 08/22/20 07:25 Dextrose/Water IV 08/23/20 01:24 .Q15H DAIANA Protocol 0.5 MG/MIN Levothyroxine Sodium 25 mcg 08/22/20 06:30 08/22/20 06:26 Levothyroxine 25 Mcg Tab PO 25 mcg DAILY@0630 DAIANA Administration Metoprolol Succinate 50 mg 08/22/20 09:00 Metoprolol Succinate (Er) 50 Mg Tab.Er.24h PO DAILY [facility] Morphine Sulfate 4 mg 08/21/20 22:03 Morphine Sulfate 4 Mg/Ml Syringe IV Q4HR PRN Chest Pain Nitroglycerin 0.4 mg 08/21/20 22:03 Nitroglycerin Sl Tabs 0.4 Mg Tab SUBLINGUAL Q5M PRN Chest Pain Intake and Output 08/21/20 08/22/20 08/22/20 22:59 06:59 14:59 Output Total 1300 Balance -1300 Output: Urine 1300 Other: Voiding Method Bedpan # Voids 1 # Bowel Movements 1 Weight 51.256 kg 51 kg 08/21/20 18:51 08/21/20 18:51
[2020-08-22] MEDS: VALSARTAN 160 MG TAB PO SCH (12:27)
[2020-08-22] MEDS: amLODIPine 10 MG TAB PO SCH (12:27)
[2020-08-22] MEDS: SODIUM CHLORIDE 0.9% 1,000 ML IV SCH (12:31)
--- NOTE | 2020-08-22 20:53 | P.HPIM ---
History of Present Illness H&P Date: 08/22/20 Chief Complaint: Fall 80-year-old female presented to the emergency department with status post fall with head injury. Patient had stated,"her defibrillator had gone off and fell week and fell backwards stricking her head." Patient has significant medical history of diabetes mellitus type II, Hypertension, Hyperlipidemia, liver disease, hypothyroidism, irregular heart rhythm with permanent Dual chamber AICD implantation in 2019 in [place]. Additional significant medical history patient had hepatitis B with treatment. Patient was evaluated in the emergency department revealing run the ventricular tachycardia. CT of head and neck show no acute abnormalities.Diagnostic testing of laboratories values, elevated magnesium and potassium. Patient was admitted to the hospital on cardiac step down unit for episodes of ventricle tachycardia with defibrillator shocks, and electrolyte imbalances. Throughout the night patient had elevated troponins and episodes of runs of ventricle tachycardia of 30 patient was given amiodarone bolus of 150 mg, and placed on amiodarone drip with additional heparin for anticoagulation therapy. Cardiology was contacted regarding recommendations and treatment plan for ventricle tachycardia and defibrillator shocks. Upon evaluation of the patient this a.m. patient resting comfortably in bed. Patient endorses shortness of breath and generalized weakness. Patient denies fever, chills chest pain, palpitations, abdominal pain, nausea, vomiting, or diarrhea. Review of Systems Constitutional: Reports malaise, Reports weakness, Reports weight loss Ears: bilateral: decreased hearing Cardiovascular: Reports decreased exercise tolerance, Reports dyspnea on exertion, Reports shortness of breath Respiratory: Reports dyspnea Musculoskeletal: Reports muscle weakness Neurological: Reports balance difficulties, Reports hearing difficulties, Reports memory loss, Reports weakness Endocrine: Reports fatigue Past Medical History Past Medical History: Hypertension, Liver Disease, Thyroid Disorder Additional Past Medical History / Comment(s): pt states she was a diabetic in the past but no longer takes medications or checks her blood sugar. History of Any Multi-Drug Resistant Organisms: None Reported Past Surgical History: Pacemaker Additional Past Surgical History / Comment(s): thyroid surg., pacemaker dec 2019 Past Anesthesia/Blood Transfusion Reactions: No Reported Reaction Type of Cardiac Device: Permanent Pacemaker Device Placement Date:: 2019 Past Psychological History: No Psychological Hx Reported Smoking Status: Never smoker Past Alcohol Use History: None Reported Past Drug Use History: None Reported Medications and Allergies Home Medications and Allergies Comment(s): Medications and allergies reviewed Home Medications Medication Instructions Recorded Confirmed Type Furosemide [Lasix] 20 mg PO DAILY 04/17/20 08/21/20 History Levothyroxine Sodium [Synthroid] 25 mcg PO DAILY 04/17/20 08/21/20 History Rosuvastatin Calcium [Crestor] 5 mg PO DAILY 04/17/20 08/21/20 History Amlodipine Besylate/Valsartan 1 each PO DAILY 04/19/20 08/21/20 History [Amlodipine-Valsartan 10-320 mg] Metoprolol Succinate (ER) [Toprol 50 mg PO DAILY 08/21/20 08/21/20 History XL] Risedronate Sodium [Actonel] 150 mg PO Q28D 08/21/20 08/21/20 History Allergies Allergy/AdvReac Type Severity Reaction Status Date / Time No Known Allergies Allergy Verified 08/21/20 18:52 Physical Exam Vitals: Vital Signs Temp Pulse Pulse Resp BP BP Pulse Ox 08/22/20 16:33 98.2 F 60 20 123/63 99 08/22/20 11:59 98 F 98 20 170/74 98 08/22/20 08:00 98.1 F 65 20 162/79 99 08/22/20 03:32 97.6 F 66 18 162/73 99 08/22/20 00:13 69 16 08/21/20 23:48 98.4 F 69 16 145/96 96 08/21/20 22:30 65 16 157/69 99 08/21/20 22:16 98.4 F 69 16 145/96 96 Intake and Output 08/22/20 08/22/20 08/22/20 06:59 14:59 22:59 Intake Total 120 840 Output Total 1300 750 600 Balance -1300 -630 240 Intake: Oral 120 840 Output: Urine 1300 750 600 Other: Voiding Method Bedpan # Voids 1 Weight 51 kg - Constitutional General appearance: mild distress - EENT Eyes: EOMI, PERRLA ENT: hard of hearing Ears: bilateral: normal - Respiratory Respiratory: bilateral: CTA (Anterior and posterior lung nino) - Cardiovascular Ventricle pace rhythm Heart rate: 74 Rhythm: regular Heart sounds: normal: S1, S2 dorsalis pedis Peripheral Pulses: bilateral: Diminished radial pulse Peripheral Pulses: bilateral: Normal - Gastrointestinal General gastrointestinal: normal bowel sounds - Integumentary Integumentary: decreased turgor, pale - Neurologic Neurologic: CNII-XII intact - Musculoskeletal Musculoskeletal: generalized weakness - Psychiatric Psychiatric: A&O x's 3 Results CBC & Chem 7: 08/22/20 07:47 08/22/20 07:47 Labs: Abnormal Lab Results - Last 24 Hours (Table) 08/21/20 08/22/20 08/22/20 Range/Units 23:12 01:57 07:47 Plt Count 130 L (150-450) k/uL APTT (22.0-30.0) sec Chloride (98-107) mmol/L BUN (7-17) mg/dL Glucose (74-99) mg/dL Troponin I 0.054 H* 0.057 H* (0.000-0.034) ng/mL Total Protein (6.3-8.2) g/dL Albumin (3.5-5.0) g/dL 08/22/20 08/22/20 Range/Units 07:47 07:47 Plt Count (150-450) k/uL APTT 67.8 H (22.0-30.0) sec Chloride 114 H (98-107) mmol/L BUN 22 H (7-17) mg/dL Glucose 118 H (74-99) mg/dL Troponin I (0.000-0.034) ng/mL Total Protein 6.0 L (6.3-8.2) g/dL Albumin 3.4 L (3.5-5.0) g/dL Chest x-ray: report reviewed CT Scan - head: report reviewed (CAT scan of the cervical spine reviewed) Thrombosis Risk Factor Assmnt - Choose All That Apply Each Factor Represents 1 point: Swollen legs (current) Other Risk Factors: Yes Each Risk Factor Represents 3 Points: Age 75 years or older Thrombosis Risk Factor Assessment Total Risk Factor Score: 4 Thrombosis Risk Factor Assessment Level: Moderate Risk Assessment and Plan Assessment: Ventricular tachycardia fall diabetes mellitus type II hypertension hyperlipidemia history of liver disease hypothyroidism permanent dual chamber AICD plantation 2019 in [place] elevated magnesium elevated potassium generalized weakness full code Plan: Ventricular tachycardia, amiodarone 150 mg bolus followed by amiodarone drip, and anticoagulation therapy of heparin; consultation with cardiology for recommendations and treatment plan status post hyperkalemia Resolved elevated magnesium Resolved Hypertension Continue antihypertensives hyperlipidemia continue statin therapy Continue to monitor diagnostic and vital signs continue medical management continue consultation with cardiology for recommendations and treatment plan regarding patient's AICD shocks with significant runs of atrial tachycardia further recommendations to come based on patient's clinical condition
[2020-08-22] MEDS: AMIODARONE 360 MG in DEXTROSE 5% IN WATER 200 ML IV SCH ×2 (21:18)
[2020-08-22 23:29] LABS: Chol/HDL Ratio 2.61; Cholesterol 183 mg/dL (0-200); LDL Cholesterol,Calculated 98.4 mg/dL (0.0-131.0)
[2020-08-23] MEDS: SODIUM CHLORIDE 0.9% 1,000 ML IV SCH ×2 (03:15→10:43)
[2020-08-23] MEDS: AMIODARONE 360 MG in DEXTROSE 5% IN WATER 200 ML IV SCH ×4 (03:30→15:49)
[2020-08-23] MEDS: LEVOTHYROXINE 25 MCG TAB PO SCH (06:19)
[2020-08-23 06:42] LABS: Basophils % (A) 0 %; Eosinophils # (A) 0.2 k/uL (0-0.7); Eosinophils % (A) 3 %; HGB 11.1 gm/dL (11.4-16.0); Lymphocytes # (A) 1.2 k/uL (1.0-4.8); Lymphocytes % (A) 17 %; MCH 32.2 pg (25.0-35.0); MCHC 33.8 g/dL (31.0-37.0); MCV 95.4 fL (80.0-100.0); Mean Platelet Volume 8.4; Monocytes # (A) 0.5 k/uL (0-1.0); Monocytes % (A) 7 %; Neutrophils # (A) 4.8 k/uL (1.3-7.7); Neutrophils % (A) 71 %; Platelet Count 136 k/uL (150-450); RBC 3.46 m/uL (3.80-5.40); RDW 12.7 % (11.5-15.5); WBC 6.7 k/uL (3.8-10.6)
[2020-08-23 06:57] LABS: African American GFR (CKD) >90 (>60 ml/min/1.73 sqM); Anion Gap 3 mmol/L; Blood Urea Nitrogen 20 mg/dL (7-17); Calcium 9.1 mg/dL (8.4-10.2); Carbon Dioxide 22 mmol/L (22-30); Chloride 113 mmol/L (98-107); Glucose 103 mg/dL (74-99); Non-African American GFR(CKD) 81 (>60 ml/min/1.73 sqM); Potassium 4.5 mmol/L (3.5-5.1); Sodium 138 mmol/L (137-145)
[2020-08-23 07:24] LABS: Prothrombin Time 10.3 sec (9.0-12.0)
[2020-08-23] MEDS: ASPIRIN 81 MG PO SCH (08:41)
[2020-08-23] MEDS: ATORVASTATIN 10 MG TAB PO SCH (08:41)
[2020-08-23] MEDS: amLODIPine 10 MG TAB PO SCH (08:41)
[2020-08-23] MEDS: VALSARTAN 160 MG TAB PO SCH ×2 (08:41→17:21)
[2020-08-23] MEDS ORDERED: METOPROLOL SUCCINATE (ER) 100 MG TAB.ER.24H PO SCH (09:00)
--- NOTE | 2020-08-23 12:47 | P.PN ---
Subjective This is a pleasant 80-year-old female past medical history significant for hepatitis B (in the 1960s), hypertension, dyslipidemia, hypothyroidism, dual chamber AICD implantation. She used to live in [place], she had her device implanted in [place]. She states they placed an AICD in December 2019 because her "heart was beating too fast" in December 2019. She follows in the office with Dr. Rob. We have been asked to see in consultation for ventricular tachycardia. Was going for a walk yesterday, she started to get half way up her ramp up to her house. She felt a sensation i her chest "felt as if something was going up and then down" and she fell backwards. She did not lose consciousness. EMS was called and patient was brought to the emergency department. She states that this feeling has been happening frequently. She does have episodes of dyspnea on exertion. Denies symptoms of PND or Orthopnea. She is very hard of hearing. She denies shortness of breath, palpitations, chest pain, nausea, vomiting, diaphoresis, abdominal pain, lightheadedness, dizziness, feelings of pre-syncope, denies loss of consciousness. Denies history of diabetes, [place], or stroke. In the emergency department patient received an extra dose of metoprolol succinate 50 mg, 1 L bolus, IV fluids at 75cc/hr. Overnight 08/22, around 2 AM patient went into ventricular tachycardia, she was given 150 mg bolus of amiodarone and started on amiodarone drip at 1 mg/min, and heparin drip. Device interrogation reveals Since January 26, 2002- patient has had 36 treated episodes VT/VF, 15 episodes of monitored VT, 15 episodes of non-sustained VT, 25 episodes of SVT. Treated episodes are mostly ATP, however, she does occasionally have shocks. 2 Shocks noted yesterday 08/21 at 16:38. DIAGNOSTICS Chest xray cardiac silhouette size is stable, mildly enlarged with dual-lead pacemaker/defibrillator and atherosclerotic aorta. Chronic bilateral changes b ilaterally. Head/cervical spine CT with no acute fracture dislocation, no acute intracranial hemorrhage or midline shift. Revealed ossified meningioma. Pelvis Xray- No acute fracture of dislocation, moderate to severe atrophy, prominence, mild to moderate joint space loss of right hip with moderate to severe joint space loss of left hip Laboratory reviewed, Pro BNP 851, troponin 0.02-->0.05-->0.05, sodium 140, potassium 5.4-->4.1, BUN 22, serum creatinine 0.57, magnesium 2.4-->1.9 04/02/2020 echocardiogram EF between 45-50%, mild mitral regurgitation, mild tricuspid regurgitation, paced C RV and RA, mild global hypokinesis of LV 04/02/2020 Lexiscan stress test revealed decreased perfusion on stress imaging involving the posterior septal wall. Stress-induced ischemia cannot be excluded 04/19/2020 Cardiac catheterization- no significant coronary artery disease, normal left ventricular end-diastolic pressures. 08/22: Echocardiogram revealed left systolic function is moderately impaired with EF between 35-40%, mid aneriosepta, apical lateral and septum LV wall hypokinetic 08/23/2020: Patient seen and examined at bedside, no acute distress. Lying comfortably in bed. Denies chest pain, shortness of breath, dizziness, lightheadedness. Laboratory data reviewed sodium 138, potassium 4.5, hemoglobin 20, serum creatinine 0.70. Telemetry tracings indicate- atrial-ventricular paced, with episode of ventricular tachycardia or cardiac started at 1:57 AM on 08/22, no further episodes of ectopy. Patient currently being maintained on amiodarone drip at 1mg/min, aspirin 81 mg daily, atorvastatin 10 mg daily, metoprolol succinate 100 mg daily, valsartan 320mg daily. PHYSICAL EXAMINATION Blood pressure 122/60 heart rate 61 afebrile and maintaining oxygen saturation 99% on room air CONSTITUTIONAL: No apparent distress. HEENT: Head is normocephalic. No JVD. No carotid bruit. CHEST EXAMINATION: Lungs are clear to auscultation. No chest wall tenderness is noted on palpation or with deep breathing. HEART EXAMINATION: Regular rate and rhythm. S1, S2 heard. No murmurs, gallops or rub. ABDOMEN: Soft, nontender. Positive bowel sounds. EXTREMITIES: 2+ peripheral pulses, no lower extremity edema and no calf tenderness. NEUROLOGIC EXAMINATION: Patient is awake, alert and oriented x3. ASSESSMENT Ventricular Tachycardia Fall Elevated troponin, most likely due to Vtach, patient with recent cardiac catheterization in 08/2020 with no significant coronary artery disease History of Hypertension Hyperkalemia- resolved Hypermagnesemia- resolved PLAN -Dr. Prabhakar evaluated the patient this morning -Plan for Non-invasive Program Stimluation with Dr. Prabhakar later today -The the risks, benefits and alternative therapies for the above-mentioned procedure was discussed with the patient. The patient has indicated understanding and acceptance of the risks and procedures discussed. Questions have been answered appropriately and she is agreeable to move forward with NIPS -Will make the patient NPO -Will stop Amiodarone drip -Continue metoprolol succinate to 100mg daily -continue home statin and valsartan -Continue cardiac telemetry -Further recommendations following clinical course Nurse Practitioner note has been reviewed, I agree with a documented findings and plan of care. Patient was seen and examined. Objective - Vital Signs Vital signs: Vital Signs Temp 98.2 F 08/23/20 12:00 Pulse 61 08/23/20 12:00 Resp 20 08/23/20 12:00 BP 122/60 08/23/20 12:00 Pulse Ox 98 08/23/20 12:00 Intake & Output 08/22/20 08/23/20 08/23/20 18:59 06:59 18:59 Intake Total 960 200 440 Output Total 1350 300 Balance -390 200 140 Weight 51.5 kg Intake: Intake, IV Titration 200 200 Amount Amiodarone 360 mg In 200 200 Dextrose 5% in Water 200 ml @ 1 MG/MIN 33.333 mls/ hr IV .Q6H [facility] Rx#: [id number] Oral 960 240 Output: Urine 1350 300 Other: Voiding Method Bedpan # Voids 1 - Labs CBC & Chem 7: 08/23/20 05:57 08/23/20 05:57 Labs: Abnormal Lab Results - Last 24 Hours (Table) 08/22/20 08/23/20 08/23/20 Range/Units 07:47 05:57 05:57 RBC 3.46 L (3.80-5.40) m/uL Hgb 11.1 L (11.4-16.0) gm/dL Hct 33.0 L (34.0-46.0) % Plt Count 136 L (150-450) k/uL Chloride 113 H (98-107) mmol/L BUN 20 H (7-17) mg/dL Glucose 103 H (74-99) mg/dL HDL Cholesterol 70.0 H (40.0-60.0) mg/dL
[2020-08-23] MEDS ORDERED: ISOPROTERENOL 250 MCG/1.25 ML SYR IV ONE (14:50)
[2020-08-23] MEDS ORDERED: METOPROLOL TARTRATE 5 MG/5 ML VIAL IVP ONE (14:50)
[2020-08-23] MEDS ORDERED: PROPOFOL 10 MG/ML 20 ML VIAL IV ONE (14:50)
[2020-08-23] MEDS ORDERED: SODIUM CHLORIDE 0.9% 1,000 ML IV ONE (15:27)
--- NOTE | 2020-08-23 16:04 | P.EPCON ---
Electrophysiology Consult - EP Consult Electrophysiology Consult: This is Dr. Prabhakar dictating an electrophysiology consult on this patient The patient was interviewed and examined IMPRESSION / ASSESSMENT: Recurrent ventricular tachycardia with a cycle length of about 392 400 ms Failed antitachycardia pacing Required ICD shock Severe nonischemic cardio myopathy Medtronic ICD in situ dual-chamber PLAN: Stop amiodarone Noninvasive program stimulation today to look for inducibility VT and plan treatment In addition, reprogramming of antitachycardia pacing to improve effectiveness HPI 80-year-old female presenting with syncope with head injury Patient states that the defibrillator hasn't gone off and she fell backwards striking her head ICD was interrogated and shows ventricular tachycardia with a cycle length of 390-400 ms Antitachycardia pacing failed Defibrillation needed ROS: No fever chills or rigors, no cough, phlegm or expectoration, no nausea, vomiting or diarrhea, no hematuria, dysuria, no musculoskeletal complaints, no strokes or seizures, no skin lesions. EXAMINATION: On examination pulse rate in the 50s, blood pressure 120/58 mmHg REVIEW OF LABS, ECG & MEDICAL DATA twelve-lead EKG shows AV sequential pacing, this appears to be LV pacing inferior wall Chest x-ray shows a dual-chamber ICD Likely LV capture from the septum Second twelve-lead EKG shows an atrial rhythm with a narrow QRS (incomplete right bundle branch block pattern), a left bundle inferior axis PVC and in termittent atrial pacing Past medical history of type 2 diabetes, hypertension, dyslipidemia, liver disease AICD implantation in 2019 in [place] Hepatitis B status post treatment 2-D echo shows moderate bili impaired LV ejection fraction 35-40% Coronary angiography in April 2020 showed no significant obstructive disease Labs revealed hemoglobin 11.1, normal white count or platelet count 236,000 Sodium 138, potassium 4.5 BUN 20 and creatinine 0.7 Borderline troponins AST 30 and ALT 15 Past history of multiple VT episodes requiring therapies
--- NOTE | 2020-08-23 17:05 | P.PCN ---
Preoperative Diagnosis: Procedure summary After receiving IV amiodarone over the last 24-48 hours, we could not induce ventricular tachycardia with after triple extrastimuli, burst stimulation and long short sequence is However after starting Isuprel, slow ventricular tachycardia was very easily inducible with triple extrastimuli at 500/480/480/480 ms VT morphology Left bundle branch block pattern, notching in the downstroke Transition in V3 Upright in inferior leads Biphasic in aVL So in essence what amiodarone did was it slowed down the VT from a cycle length of 390 ms to a more tolerated rate of about 120 beats a minute Blood pressure was stable Patient was stable to the procedure Burst pacing at a standard 88% and 84% was unsuccessful in terminating the tachycardia RAMP pacing starting at 91% terminated the VT successfully She is clearly very Isuprel sensitive and beta agonist sensitive In addition after she received IV metoprolol 10 mg in the EP lab, it was difficult to reinduce Recommendations Low-dose amiodarone to slow her heart rate down during ventricular tachycardia, 200 mg by mouth daily only High dose beta blockers I will switch from metoprolol to carvedilol 25 mg twice daily I will stop amlodipine If needed we will cut back on the dose of valsartan to allow for high dose beta pam therapy, this can be done later I will bring her back for an EP study and ablation. This appears to be a right- sided ventricular tachycardia and she will always have slow VT which will be below the detection rate and difficult to detect and treat During the EP study, a slow VT would be easy to map as long as it is hemodynamically tolerated Her slow VT today was hemodynamically stable Her device has been programmed to a more aggressive antitachycardia pacing protocol with aggressive burst stimulation at 78 and 72% followed by a ramp pacing followed by cardioversions and defibrillations She has a Medtronic dual-chamber ICD Her base pacing rate is being changed to 50 beats a minute Monitor her on telemetry for at least 48 hours to look for spontaneous breakthrough episodes of ventricular tachycardia spontaneously and assess efficacy of high dose carvedilol
--- NOTE | 2020-08-23 17:19 | P.EPPROC ---
- EP Procedure Note Electrophysiology Procedure Note: Procedure Noninvasive program stimulation Indication for the procedure Recurrent ventricular tachycardia Failed antitachycardia pacing with burst stimulation at 88 and 84% ICD shock needed to cardio with the patient Under conscious sedation, noninvasive program stim ablation was performed via the Medtronic dual-chamber ICD In the baseline state, mildly sedated, ventricular extra stimulation after triple extrastimuli, burst stimulation and punctured sequences did not induce ventricular tachycardia Isuprel started @Triple extrastimuli at 500/480/40/40 ms, ventricular tachycardia at about 115 beats a minute was induced Burst pacing failed to terminate the tachycardia RAMP Pacing terminated the tachycardia After IV metoprolol was given, VT could not be induced VT morphology is as follows Left bundle branch block performed with notching in the downslope Transition in V3 Upright QRS is in the inferior leads Biphasic in aVL Upright in lead 1 Plan Treat patient with high dose beta blockers Low-dose amiodarone The purpose is to result in slow ventricular tachycardia, bring her back for an EP study and ablation Induce a hemodynamically stable VT on Isuprel and mapped this ventricular tachycardia Stop amlodipine Stop metoprolol Start carvedilol 25 g twice daily Amiodarone 200 mg by mouth daily Spironolactone 25 mg by mouth daily Stop Lasix No more amiodarone IV Monitor on telemetry for 48 hours
--- NOTE | 2020-08-23 17:22 | P.EPPROC ---
- EP Procedure Note Electrophysiology Procedure Note: Dual-chamber Medtronic ICD was reprogrammed DD 50 PPM We have zone 200 beats a minute VT zone 400 beats a minute Slow VT zone 128 beats a minute Detection intervals reprogrammed Burst stimulation and ramp stimulation programmed prior to cardioversion and defibrillation Ramp stimulation was based on the successful ramp sequence during noninvasive program stimulation
[2020-08-23] MEDS: carvediloL 12.5 MG TAB PO SCH (17:30)
--- NOTE | 2020-08-23 19:18 | P.PN ---
Subjective Progress Note Date: 08/23/20 Principal diagnosis: Ventricular tachycardia 80-year-old female presented to the emergency department with status post fall with head injury. Patient had stated,"her defibrillator had gone off and fell week and fell backwards stricking her head." Patient has significant medical history of diabetes mellitus type II, Hypertension, Hyperlipidemia, liver disease, hypothyroidism, irregular heart rhythm with permanent Dual chamber AICD implantation in 2019 in [place]. Additional significant medical history patient had hepatitis B with treatment. Patient was evaluated in the emergency department revealing run the ventricular tachycardia. CT of head and neck show no acute abnormalities.Diagnostic testing of laboratories values, elevated magnesium and potassium. Patient was admitted to the hospital on cardiac step down unit for episodes of ventricle tachycardia with defibrillator shocks, and electrolyte imbalances. Throughout the night patient had elevated troponins and episodes of runs of ventricle tachycardia of 30 patient was given amiodarone bolus of 150 mg, and placed on amiodarone drip with additional heparin for anticoagulation therapy. Cardiology was contacted regarding recommendations and treatment plan for ventricle tachycardia and defibrillator shocks. Upon evaluation of the patient this a.m. patient resting comfortably in bed. Patient endorses shortness of breath and generalized weakness. Patient denies fever, chills chest pain, palpitations, abdominal pain, nausea, vomiting, or diarrhea. August 23, 2020 Plan evaluation patient this a.m. resting comfortably in bed patient continues to be an [facility] order on for episodes of ventricular tachycardia, noted per nursing staff or consultants after amiodarone was initiated. Patient waiting on apparel pattern maker for recommendations and treatment plan regarding dual chamber AICD medication adjustments. Patient denies any complaints at this time. Objective - Vital Signs Vital signs: Vital Signs Temp 97.5 F L 08/23/20 17:19 Pulse 58 L 08/23/20 17:19 Resp 20 08/23/20 17:19 BP 141/65 08/23/20 17:19 Pulse Ox 99 08/23/20 17:19 Intake & Output 08/23/20 08/23/20 08/24/20 06:59 18:59 06:59 Intake Total 200 1246.5 Output Total 600 Balance 200 646.5 Weight 51.5 kg Intake: IV 400 Intake, IV Titration 200 366.5 Amount Amiodarone 360 mg In 200 200 Dextrose 5% in Water 200 ml @ 1 MG/MIN 33.333 mls/ hr IV .Q6H DAIANA Rx#: [id number] Amiodarone 450 mg In 166.5 Dextrose 5% in Water 250 ml @ 0.5 MG/MIN 16.667 mls/hr IV .Q15H DAIANA Rx#: [id number] Oral 480 Output: Urine 600 Other: Voiding Method Bedpan # Voids 1 - Constitutional General appearance: Present: cooperative - EENT Eyes: Present: EOMI, PERRLA ENT: Present: hard of hearing Ears: left: normal - Neck Neck: Present: normal ROM Carotids: bilateral: upstroke normal Thyroid: bilateral: normal size - Respiratory Respiratory: bilateral: CTA (Anterior and posterior lung nino) - Cardiovascular Details: Paced Heart rate: 74 Rhythm: regular Heart sounds: normal: S1, S2 - Peripheral pulses radial pulse Peripheral Pulses: bilateral: Normal femoral Peripheral Pulses: bilateral: Normal - Gastrointestinal General gastrointestinal: Present: normal bowel sounds, soft - Integumentary Integumentary: Present: decreased turgor, pale - Neurologic Neurologic: Present: CNII-XII intact - Musculoskeletal Musculoskeletal: Present: generalized weakness - Psychiatric Psychiatric: Present: A&O x's 3 - Allied health notes Allied health notes reviewed: nursing - Labs CBC & Chem 7: 08/23/20 05:57 08/23/20 05:57 Labs: Abnormal Lab Results - Last 24 Hours (Table) 08/22/20 08/23/20 08/23/20 Range/Units 07:47 05:57 05:57 RBC 3.46 L (3.80-5.40) m/uL Hgb 11.1 L (11.4-16.0) gm/dL Hct 33.0 L (34.0-46.0) % Plt Count 136 L (150-450) k/uL Chloride 113 H (98-107) mmol/L BUN 20 H (7-17) mg/dL Glucose 103 H (74-99) mg/dL HDL Cholesterol 70.0 H (40.0-60.0) mg/dL Assessment and Plan Assessment: Ventricular tachycardia fall diabetes mellitus type II hypertension hyperlipidemia history of liver disease hypothyroidism permanent dual chamber AICD plantation 2019 in [place] elevated magnesium elevated potassium generalized weakness full code Plan: Ventricular tachycardia, amiodarone 150 mg bolus followed by amiodarone drip, and anticoagulation therapy of heparin; consultation with cardiology for recommendations and treatment plan Ventricular tachycardia, awaiting apparel pattern maker recommendations regarding treatment plan and medication adjustments hyperkalemia Resolved elevated magnesium Resolved Hypertension Continue antihypertensives hyperlipidemia continue statin therapy Continue to monitor diagnostic and vital signs continue medical management continue consultation with cardiology for recommendations and treatment plan regarding patient's AICD shocks with significant runs of atrial tachycardia further recommendations to come based on patient's clinical condition Hopeful discharge within 48 hours Time with Patient: Greater than 30
[2020-08-24] MEDS: LEVOTHYROXINE 25 MCG TAB PO SCH (06:34)
[2020-08-24] MEDS: carvediloL 12.5 MG TAB PO SCH ×2 (06:34→17:33)
[2020-08-24] MEDS: ASPIRIN 81 MG PO SCH (08:15)
[2020-08-24] MEDS: ATORVASTATIN 10 MG TAB PO SCH (08:15)
[2020-08-24] MEDS: AMIODARONE 200 MG TAB PO SCH (08:15)
[2020-08-24 08:59] LABS: Basophils % (A) 0 %; Eosinophils # (A) 0.2 k/uL (0-0.7); Eosinophils % (A) 4 %; HCT 31.6 % (34.0-46.0); HGB 10.7 gm/dL (11.4-16.0); Lymphocytes % (A) 21 %; MCH 32.2 pg (25.0-35.0); MCHC 33.7 g/dL (31.0-37.0); MCV 95.6 fL (80.0-100.0); Mean Platelet Volume 8.9; Monocytes # (A) 0.3 k/uL (0-1.0); Monocytes % (A) 7 %; Neutrophils # (A) 3.2 k/uL (1.3-7.7); Neutrophils % (A) 67 %; Platelet Count 130 k/uL (150-450); RBC 3.31 m/uL (3.80-5.40); RDW 12.5 % (11.5-15.5); WBC 4.7 k/uL (3.8-10.6)
[2020-08-24 09:13] LABS: Albumin 2.6 g/dL (3.5-5.0); Calcium 8.9 mg/dL (8.4-10.2); Potassium 4.2 mmol/L (3.5-5.1); Total Bilirubin 0.5 mg/dL (0.2-1.3); Total Protein 4.9 g/dL (6.3-8.2)
--- NOTE | 2020-08-24 11:26 | P.PN ---
Subjective This is a pleasant 80-year-old female past medical history significant for hepatitis B (in the 1960s) post treatment, hypertension, dyslipidemia, hypothyroidism, dual chamber AICD implantation (Medtronic). She used to live in [place], she had her device implanted in [place]. She states they placed an AICD in December 2019 because her "heart was beating too fast" in December 2019. She follows in the office with Dr. Rob. We have been asked to see in consultation for ventricular tachycardia. Was going for a walk yesterday, she started to get half way up her ramp up to her house. She felt a sensation i her chest "felt as if something was going up and then down" and she fell backwards. She did not lose consciousness. EMS was called and patient was brought to the emergency department. She states that this feeling has been happening frequently. She does have episodes of dyspnea on exertion. Denies symptoms of PND or Orthopnea. She is very hard of hearing. She denies shortness of breath, palpitations, chest pain, nausea, vomiting, diaphoresis, abdominal pain, lightheadedness, dizziness, feelings of pre-syncope, denies loss of consciousness. Denies history of diabetes, AL, or stroke. In the emergency department patient received an extra dose of metoprolol succinate 50 mg, 1 L bolus, IV fluids at 75cc/hr. Overnight 08/22, around 2 AM patient went into ventricular tachycardia, she was given 150 mg bolus of amiodarone and started on amiodarone drip at 1 mg/min, and heparin drip. Device interrogation reveals Since January 26, 2002- patient has had 36 treated episodes VT/VF, 15 episodes of monitored VT, 15 episodes of non-sustained VT, 25 episodes of SVT. Ventricular tachycardia with a cycle length of 390-400 ms, A ntitachycardia pacing failed, Defibrillation needed DIAGNOSTICS Chest xray cardiac silhouette size is stable, mildly enlarged with dual-lead pacemaker/defibrillator and atherosclerotic aorta. Chronic bilateral changes bilaterally. Head/cervical spine CT with no acute fracture dislocation, no acute intracranial hemorrhage or midline shift. Revealed ossified meningioma. Pelvis Xray- No acute fracture of dislocation, moderate to severe atrophy, prominence, mild to moderate joint space loss of right hip with moderate to severe joint space loss of left hip Laboratory reviewed, Pro BNP 851, troponin 0.02-->0.05-->0.05, sodium 140, potassium 5.4-->4.1, BUN 22, serum creatinine 0.57, magnesium 2.4-->1.9 04/02/2020 echocardiogram EF between 45-50%, mild mitral regurgitation, mild tricuspid regurgitation, paced C RV and RA, mild global hypokinesis of LV 04/02/2020 Lexiscan stress test revealed decreased perfusion on stress imaging involving the posterior septal wall. Stress-induced ischemia cannot be excluded 04/19/2020 Cardiac catheterization- no significant coronary artery disease, normal left ventricular end-diastolic pressures. 08/22: Echocardiogram revealed left systolic function is moderately impaired with EF between 35-40%, mid aneriosepta, apical lateral and septum LV wall hypok inetic 08/23: Patient underwent NIPS with Dr. Prabhakar. Patient was started on carvedilol 25 mg daily, amiodarone 200 mg daily, spironolactone 25 mg daily. 08/24: Patient seen and examined at bedside, no acute distress. Lying comfortably in bed. Denies chest pain, shortness of breath, dizziness, lightheadedness. Laboratory data reviewed sodium 138, potassium 4.5, hemoglobin 20, serum creatinine 0.70. Telemetry tracings indicate- atrial-ventricular paced, no further episodes of ectopy or ventricular tachycardia. Patient currently being maintained on amiodarone 200mg daily, aspirin 81 mg daily, atorvastatin 10 mg daily, valsartan 320mg daily. Laboratory data reviewed sodium 140, potassium 4.2, BUN 22, serum creatinine 0.87, liver enzymes within normal limits, triglycerides 73, cholesterol 93, LDL 94, HDL 70 PHYSICAL EXAMINATION Blood pressure 102/53 heart rate 55 afebrile and maintaining oxygen saturation 99% on room air CONSTITUTIONAL: No apparent distress. HEENT: Head is normocephalic. No JVD. No carotid bruit. CHEST EXAMINATION: Lungs are clear to auscultation. No chest wall tenderness is noted on palpation or with deep breathing. HEART EXAMINATION: Regular rate and rhythm. S1, S2 heard. No murmurs, gallops or rub. ABDOMEN: Soft, nontender. Positive bowel sounds. EXTREMITIES: 2+ peripheral pulses, no lower extremity edema and no calf tenderness. NEUROLOGIC EXAMINATION: Patient is awake, alert and oriented x3. ASSESSMENT Recurrent Ventricular Tachycardia with failed antitachycardia pacing requiring ICD Shock Fall Non-ischemic cardiomyopathy - EF 35-40% Elevated troponin, most likely due to Vtach, patient with recent cardiac catheterization in 08/2020 with no significant coronary artery disease History of Hypertension Hyperkalemia- resolved Hypermagnesemia- resolved PLAN Stop amlodipine and metoprolol Continue carvedilol 25 g twice daily, Amiodarone 200 mg by mouth daily, statin, aspirin, and valsartan will adjust valsartan if needed We will monitor patient for one more day, if stable, and no acute events, most likely discharge home tomorrow with close follow up with Dr. Rob Plan to bring her back for an EP study and ablation in the future as an outpatient. Continue cardiac telemetry. Further recommendations based on clinical course Nurse Practitioner note has been reviewed, I agree with a documented findings and plan of care. Patient was seen and examined. Objective - Vital Signs Vital signs: Vital Signs Temp 97.9 F 08/24/20 08:08 Pulse 55 L 08/24/20 08:08 Resp 20 08/24/20 08:08 BP 102/53 08/24/20 08:08 Pulse Ox 97 08/24/20 08:08 Intake & Output 08/23/20 08/24/20 08/24/20 18:59 06:59 18:59 Intake Total 1246.5 118 Output Total 600 300 Balance 646.5 -300 118 Weight 52.6 kg Intake: IV 400 Intake, IV Titration 366.5 Amount Amiodarone 360 mg In 200 Dextrose 5% in Water 200 ml @ 1 MG/MIN 33.333 mls/ hr IV .Q6H DAIANA Rx#: [id number] Amiodarone 450 mg In 166.5 Dextrose 5% in Water 250 ml @ 0.5 MG/MIN 16.667 mls/hr IV .Q15H DAIANA Rx#: [id number] Oral 480 118 Output: Urine 600 300 Other: Voiding Method Bedpan # Voids 1 1 # Bowel Movements 1 1 - Labs CBC & Chem 7: 08/24/20 08:39 08/24/20 08:39 Labs: Abnormal Lab Results - Last 24 Hours (Table) 08/24/20 08/24/20 Range/Units 08:39 08:39 RBC 3.31 L (3.80-5.40) m/uL Hgb 10.7 L (11.4-16.0) gm/dL Hct 31.6 L (34.0-46.0) % Plt Count 130 L (150-450) k/uL Chloride 113 H (98-107) mmol/L BUN 22 H (7-17) mg/dL Glucose 184 H (74-99) mg/dL Total Protein 4.9 L (6.3-8.2) g/dL Albumin 2.6 L (3.5-5.0) g/dL
[2020-08-24] MEDS: VALSARTAN 160 MG TAB PO SCH (19:49)
--- NOTE | 2020-08-24 22:00 | P.PN ---
Subjective Progress Note Date: 08/24/20 Principal diagnosis: Ventricular tachycardia 80-year-old female presented to the emergency department with status post fall with head injury. Patient had stated,"her defibrillator had gone off and fell week and fell backwards stricking her head." Patient has significant medical history of diabetes mellitus type II, Hypertension, Hyperlipidemia, liver disease, hypothyroidism, irregular heart rhythm with permanent Dual chamber AICD implantation in 2019 in [place]. Additional significant medical history patient had hepatitis B with treatment. Patient was evaluated in the emergency department revealing run the ventricular tachycardia. CT of head and neck show no acute abnormalities.Diagnostic testing of laboratories values, elevated magnesium and potassium. Patient was admitted to the hospital on cardiac step down unit for episodes of ventricle tachycardia with defibrillator shocks, and electrolyte imbalances. Throughout the night patient had elevated troponins and episodes of runs of ventricle tachycardia of 30 patient was given amiodarone bolus of 150 mg, and placed on amiodarone drip with additional heparin for anticoagulation therapy. Cardiology was contacted regarding recommendations and treatment plan for ventricle tachycardia and defibrillator shocks. Upon evaluation of the patient this a.m. patient resting comfortably in bed. Patient endorses shortness of breath and generalized weakness. Patient denies fever, chills chest pain, palpitations, abdominal pain, nausea, vomiting, or diarrhea. August 23, 2020 evaluation patient this a.m. resting comfortably in bed patient continues to no episodes of ventricular tachycardia, noted per nursing staff or consultants after amiodarone was initiated. Patient waiting on wharfinger chief for recommendations and treatment plan regarding dual chamber AICD medication adjustments. Patient denies any complaints at this time. August 24, 2020 evaluated patient this a.m. resting comfortably in bed, no acute signs of distress. Patient underwent electrophysiology testing yesterday from cardiology, new recommendations for medication adjustment by cardiology. Patient denies any complaints at this time. Awaiting clearance from cardiology for discharge close follow-up with primary care and cardiology. Objective - Vital Signs Vital signs: Vital Signs Temp 97.4 F L 08/24/20 12:03 Pulse 58 L 08/24/20 17:00 Resp 20 08/24/20 12:03 BP 127/61 08/24/20 17:00 Pulse Ox 99 08/24/20 17:00 Intake & Output 08/24/20 08/24/20 08/25/20 06:59 18:59 06:59 Intake Total 354 Output Total 300 250 Balance -300 104 Weight 52.6 kg Intake: Oral 354 Output: Urine 300 250 Other: Voiding Method Bedpan # Voids 1 # Bowel Movements 1 1 - Constitutional General appearance: Present: cooperative, thin - EENT Eyes: Present: EOMI, PERRLA ENT: Present: hard of hearing Ears: bilateral: normal - Neck Neck: Present: normal ROM Carotids: bilateral: upstroke normal Thyroid: bilateral: normal size - Respiratory Respiratory: bilateral: CTA (Anterior posterior lung nino) - Cardiovascular Details: paced rhythm Heart rate: 60 Rhythm: regular Heart sounds: normal: S1, S2 - Peripheral pulses radial pulse Peripheral Pulses: bilateral: Normal dorsalis pedis Peripheral Pulses: bilateral: Normal - Gastrointestinal General gastrointestinal: Present: normal bowel sounds - Integumentary Integumentary: Present: normal turgor - Neurologic Neurologic: Present: CNII-XII intact - Musculoskeletal Musculoskeletal: Present: generalized weakness - Psychiatric Psychiatric: Present: A&O x's 3, appropriate affect, intact judgment & insight - Allied health notes Allied health notes reviewed: nursing (Electrophysiology procedure reviewed) - Labs CBC & Chem 7: 08/24/20 08:39 08/24/20 08:39 Labs: Abnormal Lab Results - Last 24 Hours (Table) 08/24/20 08/24/20 Range/Units 08:39 08:39 RBC 3.31 L (3.80-5.40) m/uL Hgb 10.7 L (11.4-16.0) gm/dL Hct 31.6 L (34.0-46.0) % Plt Count 130 L (150-450) k/uL Chloride 113 H (98-107) mmol/L BUN 22 H (7-17) mg/dL Glucose 184 H (74-99) mg/dL Total Protein 4.9 L (6.3-8.2) g/dL Albumin 2.6 L (3.5-5.0) g/dL Assessment and Plan Assessment: Ventricular tachycardia fall diabetes mellitus type II hypertension hyperlipidemia history of liver disease hypothyroidism permanent dual chamber AICD plantation 2019 in [place] elevated magnesium elevated potassium generalized weakness full code Plan: Ventricular tachycardia, amiodarone 150 mg bolus followed by amiodarone drip, and anticoagulation therapy of heparin; consultation with cardiology for recommendations and treatment plan Ventricular tachycardia, Underwent wharfinger chief procedure, recommendations on medication adjustment elevated magnesium Resolved Hypertension Continue antihypertensives, Per cardiology hyperlipidemia continue statin therapy Continue to monitor diagnostic and vital signs continue medical management continue consultation with cardiology for recommendations and treatment plan regarding patient's AICD shocks with significant runs of atrial tachycardia further recommendations to come based on patient's clinical condition Hopeful discharge tomorrow Time with Patient: Greater than 30
[2020-08-25] MEDS: carvediloL 12.5 MG TAB PO SCH ×2 (06:18→17:35)
[2020-08-25] MEDS: LEVOTHYROXINE 25 MCG TAB PO SCH (06:18)
[2020-08-25] MEDS: ATORVASTATIN 10 MG TAB PO SCH (08:18)
[2020-08-25] MEDS: AMIODARONE 200 MG TAB PO SCH (08:18)
[2020-08-25] MEDS: ASPIRIN 81 MG PO SCH (08:18)
[2020-08-25 08:31] LABS: Basophils % (A) 0 %; Eosinophils # (A) 0.2 k/uL (0-0.7); Eosinophils % (A) 4 %; HCT 32.2 % (34.0-46.0); HGB 10.8 gm/dL (11.4-16.0); Lymphocytes # (A) 1.3 k/uL (1.0-4.8); Lymphocytes % (A) 23 %; MCH 31.8 pg (25.0-35.0); MCHC 33.7 g/dL (31.0-37.0); MCV 94.3 fL (80.0-100.0); Mean Platelet Volume 8.4; Monocytes # (A) 0.4 k/uL (0-1.0); Monocytes % (A) 7 %; Neutrophils # (A) 3.5 k/uL (1.3-7.7); Neutrophils % (A) 63 %; Platelet Count 145 k/uL (150-450); RBC 3.41 m/uL (3.80-5.40); RDW 12.8 % (11.5-15.5); WBC 5.5 k/uL (3.8-10.6)
[2020-08-25 08:49] LABS: Calcium 9.1 mg/dL (8.4-10.2); Potassium 4.6 mmol/L (3.5-5.1)
--- NOTE | 2020-08-25 11:58 | P.PN ---
Subjective Progress Note Date: 08/25/20 This is a pleasant 80-year-old female with past medical history significant for hypertension, hyperlipidemia, hypothyroidism, dual-chamber AICD, she follows with Dr. Aldridge in the office. Initially cardiology was asked to see the patient because of ventricular tachycardia. Patient was also seen by Dr. Lopez in consultation. Amlodipine and metoprolol were discontinued, we'll get a continue the Coreg, amiodarone 200 daily, statin, aspirin, valsartan. She is remaining at this time in normal sinus rhythm, she will return back for EP study and ablation down the road. From our perspective she may be able to be discharged home tomorrow. Blood pressure 100/60 with a heart rate in the 50s, 100% on room air. White blood cell count 5.5, hemoglobin 10.8, platelet count 145. Sodium 141, potassium 4.6, BUN 30, creatinine 0.8. Objective - Vital Signs Vital signs: Vital Signs Temp 98.3 F 08/25/20 08:12 Pulse 50 L 08/25/20 11:04 Resp 16 08/25/20 11:04 BP 99/59 08/25/20 11:04 Pulse Ox 100 08/25/20 11:04 Intake & Output 08/24/20 08/25/20 08/25/20 18:59 06:59 18:59 Intake Total 354 240 Output Total 250 100 Balance 104 -100 240 Weight 53.1 kg Intake: Oral 354 240 Output: Urine 250 100 Other: # Voids 1 1 # Bowel Movements 1 1 - Exam Blood pressure 160/79 heart rate 65 afebrile and maintaining oxygen saturation 99% on room air CONSTITUTIONAL: No apparent distress. HEENT: Head is normocephalic. Pupils are equal, round. Sclerae anicteric. Mucous membranes of the mouth are moist. No JVD. No carotid bruit. CHEST EXAMINATION: Lungs are clear to auscultation. No chest wall tenderness is noted on palpation or with deep breathing. HEART EXAMINATION: Regular rate and rhythm. S1, S2 heard. No murmurs, gallops or rub. ABDOMEN: Soft, nontender. Positive bowel sounds. EXTREMITIES: 2+ peripheral pulses, no lower extremity edema and no calf tenderness. NEUROLOGIC EXAMINATION: Patient is awake, alert and oriented x3. - Labs CBC & Chem 7: 08/25/20 07:53 08/25/20 07:53 Labs: Abnormal Lab Results - Last 24 Hours (Table) 08/25/20 08/25/20 Range/Units 07:53 07:53 RBC 3.41 L (3.80-5.40) m/uL Hgb 10.8 L (11.4-16.0) gm/dL Hct 32.2 L (34.0-46.0) % Plt Count 145 L (150-450) k/uL Chloride 114 H (98-107) mmol/L BUN 30 H (7-17) mg/dL Glucose 122 H (74-99) mg/dL Assessment and Plan Plan: ASSESSMENT and plan #1 Ventricular Tachycardia #2 Fall #3 Elevated troponin, most likely due to Vtach, patient with recent cardiac catheterization in 08/2020 with no significant coronary artery disease #4 History of Hypertension #5Hyperkalemia- resolved #6 Hypermagnesemia- resolved Plan Continue Coreg 25 mg twice a day, amiodarone 200 mg daily, statin, aspirin, vals adithya. Discharge home in the morning tomorrow. Patient will return for EP study and ablation in the future as an outpatient. DNP note has been reviewed, I agree with a documented findings and plan of care. Patient was seen and examined.
--- NOTE | 2020-08-25 14:21 | P.PN ---
Subjective This is a pleasant 80 years old female with past medical history of hypertension, hyperlipidemia, hypothyroidism, status post pacemaker She presents because of episodes of V. tach. Patient currently is asymptomatic. Crit is stable and controlled. Push team on the case and I discussed the case with Dr. Walker She is currently on amiodarone 20 mg daily and Coreg 25 mg twice daily and baby aspirin 81 mg daily Possible discharge in 24 hours was cleared by repairing calibrator Objective - Vital Signs Vital signs: Vital Signs Temp 98.3 F 08/25/20 08:12 Pulse 50 L 08/25/20 11:04 Resp 16 08/25/20 11:04 BP 99/59 08/25/20 11:04 Pulse Ox 100 08/25/20 11:04 Intake & Output 08/24/20 08/25/20 08/25/20 18:59 06:59 18:59 Intake Total 354 480 Output Total 250 100 Balance 104 -100 480 Weight 53.1 kg Intake: Oral 354 480 Output: Urine 250 100 Other: # Voids 1 1 # Bowel Movements 1 1 - Exam GENERAL: The patient is alert and oriented x3, not in any acute distress. Well developed, well nourished. HEENT: Pupils are round and equally reacting to light. EOMI. No scleral icterus. No conjunctival pallor. Normocephalic, atraumatic. No pharyngeal erythema. No thyromegaly. CARDIOVASCULAR: S1 and S2 present. No murmurs, rubs, or gallops. PULMONARY: Chest is clear to auscultation, no wheezing or crackles. ABDOMEN: Soft, nontender, nondistended, normoactive bowel sounds. No palpable organomegaly. MUSCULOSKELETAL: No joint swelling or deformity. EXTREMITIES: No cyanosis, clubbing, or pedal edema. NEUROLOGICAL: Gross neurological examination did not reveal any focal deficits. SKIN: No rashes. no petechiae. - Labs CBC & Chem 7: 08/25/20 07:53 08/25/20 07:53 Labs: Abnormal Lab Results - Last 24 Hours (Table) 08/25/20 08/25/20 Range/Units 07:53 07:53 RBC 3.41 L (3.80-5.40) m/uL Hgb 10.8 L (11.4-16.0) gm/dL Hct 32.2 L (34.0-46.0) % Plt Count 145 L (150-450) k/uL Chloride 114 H (98-107) mmol/L BUN 30 H (7-17) mg/dL Glucose 122 H (74-99) mg/dL Assessment and Plan Assessment: Episodes of recurrent ventricular tachycardia, currently stable Hypertension Cardiomyopathy With ejection fraction of 35-40% Hyperlipidemia Hypothyroidism Status post pacemaker Plan: This is a pleasant 80 years old female who presents with V. tach. Cardiology team on the case. Patient is currently on amiodarone and Coreg. Also she was started on baby aspirin 81 mg I explained to the patient her problems and management plan, I explained for her risk of bleeding with aspirin, she verbalized understanding and acceptance to continue with it as benefits more than risks.
[2020-08-25] MEDS: VALSARTAN 160 MG TAB PO SCH (20:59)
[2020-08-26] MEDS: carvediloL 12.5 MG TAB PO SCH (06:32)
[2020-08-26] MEDS: LEVOTHYROXINE 25 MCG TAB PO SCH (06:32)
[2020-08-26 08:22] VITALS: RESP 16
[2020-08-26] MEDS: ASPIRIN 81 MG PO SCH (08:22)
[2020-08-26] MEDS: ATORVASTATIN 10 MG TAB PO SCH (08:22)
[2020-08-26] MEDS: AMIODARONE 200 MG TAB PO SCH (08:22)
[2020-08-26 12:06] VITALS: BP 142/62; PULSE 58; TEMP 98.2
--- NOTE | 2020-08-26 14:09 | P.PN ---
Subjective Progress Note Date: 08/26/20 HISTORY OF PRESENT ILLNESS: Patient examined this morning at the bedside. Patient denies chest pain or pressure. She denies short of breath. No further episodes of ventricular tach ycardia. Vital signs are stable. PHYSICAL EXAM: VITAL SIGNS: Reviewed. GENERAL: Well-developed in no acute distress. NECK: Supple. No JVD or thyromegaly LUNGS: Respirations even and unlabored. Lungs essentially clear to auscultation bilaterally. HEART: Regular rate and rhythm. S1 and S2 heard. EXTREMITIES: Normal range of motion. No clubbing or cyanosis. Peripheral puls es intact. No lower extremity edema ASSESSMENT: Ventricular tachycardia Elevated troponin, likely secondary to V. tach, patient with recent cardiac catheterization in August 2020 with no significant coronary artery disease Hypertension Hypokalemia, resolved Hypomagnesemia resolved Fall PLAN: Continue current cardiac medications Patient may be discharged home from a cardiac standpoint Patient is to follow up on an outpatient basis Nurse practitioner note has been reviewed by physician. Signing provider agrees with the documented findings, assessment, and plan of care. Objective - Vital Signs Vital signs: Vital Signs Temp 98.2 F 08/26/20 12:04 Pulse 58 L 08/26/20 13:12 Resp 16 08/26/20 13:12 BP 142/62 08/26/20 12:04 Pulse Ox 98 08/26/20 12:04 Intake & Output 08/25/20 08/26/20 08/26/20 18:59 06:59 18:59 Intake Total 720 240 Output Total 120 200 Balance 720 -120 40 Weight 53.3 kg Intake: Oral 720 240 Output: Urine 120 200 Other: Voiding Method Bedside Commode Bedside Commode # Voids 1 - Labs CBC & Chem 7: 08/25/20 07:53 08/25/20 07:53
--- NOTE | 2020-08-26 21:45 | P.DS ---
Providers Date of admission: 08/21/20 21:40 Attending physician: Edin Gorman Consults: 08/21/20 22:03 Consult Physician Routine Consulting Provider: Jason Cartwright Consult Reason/Comments: VT Do you want consulting provider notified?: Yes 08/22/20 12:15 Consult Physician Routine Consulting Provider: Nazario Prabhakar Consult Reason/Comments: EP consult for ventricular tachycardia Do you want consulting provider notified?: Yes Primary care physician: Edin Gorman Hospital Course: Diagnoses: Episodes of recurrent ventricular tachycardia, currently stable. Cleared by sap pi developer for discharge Hypertension Cardiomyopathy With ejection fraction of 35-40% Hyperlipidemia Hypothyroidism Status post pacemaker Hospital course: This is a pleasant 80 years old female with past medical history of hy pertension, hyperlipidemia, hypothyroidism, status post pacemaker She presents because of episodes of V. tach.Patient currently is asymptomatic. No more episodes of arrhythmia for 48 hours Patient has been evaluated by general sap pi developer as well as EP sap pi developer Dr. Jade No chest pain. No dyspnea. Denies and change on urine or bowel habits. No fever Patient was cleared for discharge by sap pi developer with plan for more EP study as an outpatient Problems and management plan were discussed with the patient and he verbalized understanding and acceptance Medications were adjusted by sap pi developer, patient was discharge on the current medication she takes in the hospital. She is discharged on amiodarone, Coreg 25 mg and Diovan 320 mg Patient was found stable and can be discharged home however he needs follow-up as an outpatient. Patient was instructed to follow up with PCP within one week and patient agrees Physical exam Gen: patient is a AAOx3, no distress CVS: S1-S2, RRR, no murmur Lungs: B/L CTA, no wheezing Abdomen: soft, no distention, no tenderness, positive bowel sounds Extremity: no leg edema or induration Time spent more than 35 minutes Patient Condition at Discharge: Stable Plan - Discharge Summary Discharge Rx Participant: No New Discharge Prescriptions: New Amiodarone [Cordarone] 200 mg PO DAILY #90 tab Carvedilol [Coreg] 25 mg PO BID #180 tablet Valsartan [Diovan] 320 mg PO DAILY@2100 #30 tab Continue Rosuvastatin Calcium [Crestor] 5 mg PO DAILY Levothyroxine Sodium [Synthroid] 25 mcg PO DAILY Risedronate Sodium [Actonel] 150 mg PO Q28D Discontinued Furosemide [Lasix] 20 mg PO DAILY Amlodipine Besylate/Valsartan [Amlodipine-Valsartan 10-320 mg] 1 each PO DAILY Metoprolol Succinate (ER) [Toprol XL] 50 mg PO DAILY Discharge Medication List Levothyroxine Sodium [Synthroid] 25 mcg PO DAILY 04/17/20 [History] Rosuvastatin Calcium [Crestor] 5 mg PO DAILY 04/17/20 [History] Risedronate Sodium [Actonel] 150 mg PO Q28D 08/21/20 [History] Amiodarone [Cordarone] 200 mg PO DAILY #90 tab 08/23/20 [Rx] Carvedilol [Coreg] 25 mg PO BID #180 tablet 08/23/20 [Rx] Valsartan [Diovan] 320 mg PO DAILY@2100 #30 tab 08/26/20 [Rx] Follow up Appointment(s)/Referral(s): Edin Gorman MD [Primary Care Provider] - 1-2 days (please call thursday for appointment) [facility], [NON-STAFF] - Wilfrid Rob MD [STAFF PHYSICIAN] - 2 Weeks (please call thursday for appointment) Activity/Diet/Wound Care/Special Instructions: cardiac diet activity is restricted till you see your doctor you need referral to for EP study as outpatient Discharge Disposition: HOME WITH HOME HEALTH SERVICES
== END 2020-08-26 15:13 | disposition home health service (06) | DRG 309 ==
LOC: EC 17:08 → 3SCARD 21:40
PROVIDERS: ADMIT Family Medicine; ATTEND Family Medicine
DX: I47.2 Ventricular tachycardia (principal); I42.8 Other cardiomyopathies; B19.10 Unspecified viral hepatitis B without hepatic coma; Z79.890 Hormone replacement therapy; E11.9 Type 2 diabetes mellitus without complications; E78.5 Hyperlipidemia, unspecified; E03.9 Hypothyroidism, unspecified; E87.5 Hyperkalemia; I10 Essential (primary) hypertension; E83.41 Hypermagnesemia; Z95.810 Presence of automatic (implantable) cardiac defibrillator; R77.8 Other specified abnormalities of plasma proteins; E83.42 Hypomagnesemia; E87.6 Hypokalemia; Z20.822 Contact with and (suspected) exposure to COVID-19; I25.10 Atherosclerotic heart disease of native coronary artery without angina pectoris; I44.7 Left bundle-branch block, unspecified; H91.90 Unspecified hearing loss, unspecified ear; I70.0 Atherosclerosis of aorta; Z79.82 Long term (current) use of aspirin; Z79.899 Other long term (current) drug therapy; D32.9 Benign neoplasm of meninges, unspecified; W19.XXXA Unspecified fall, initial encounter
CPT/HCPCS: 36415; 70450; 71046; 72125; 72170; 80048; 80053; 80061; 83735; 83880; 84484; 85025; 85610; 85730; 87635; 93005; 93306; 93642; 99285

== ENCOUNTER 2020-08-29 13:06 | Emergency (ER) | payer MEDICARE ==
[2020-08-29 13:45] VITALS: BP 145/80; TEMP 97.8
--- NOTE | 2020-08-29 15:17 | ED ---
General Adult HPI - General Chief complaint: Extremity Injury, Lower Stated complaint: tingling in legs Time Seen by Provider: 08/29/20 14:42 Source: patient, RN notes reviewed Mode of arrival: wheelchair Limitations: physical limitation - History of Present Illness Initial comments: 80-year-old female presents to the emergency room for a chief complaint of left leg pain. Patient reports that she was getting out of the car and twisted. When she went to stand she had a sharp shooting pain from her hip to her foot. This lasted only momentarily. Patient denies any pain at this time. Patient denies any chest pain or shortness of breath.Patient has no other complaints at this time including shortness of breath, chest pain, abdominal pain, nausea or vomiting, headache, or visual changes. - Related Data Home Medications Medication Instructions Recorded Confirmed Levothyroxine Sodium [Synthroid] 25 mcg PO DAILY 04/17/20 08/21/20 Rosuvastatin Calcium [Crestor] 5 mg PO DAILY 04/17/20 08/21/20 Risedronate Sodium [Actonel] 150 mg PO Q28D 08/21/20 08/21/20 Previous Rx's Medication Instructions Recorded Amiodarone [Cordarone] 200 mg PO DAILY #90 tab 08/23/20 Carvedilol [Coreg] 25 mg PO BID #180 tablet 08/23/20 Valsartan [Diovan] 320 mg PO DAILY@2100 #30 tab 08/26/20 Allergies Allergy/AdvReac Type Severity Reaction Status Date / Time No Known Allergies Allergy Verified 08/29/20 13:45 Review of Systems ROS Statement: Those systems with pertinent positive or pertinent negative responses have been documented in the HPI. ROS Other: All systems not noted in ROS Statement are negative. Past Medical History Past Medical History: Diabetes Mellitus, Hypertension, Liver Disease, Thyroid Disorder Additional Past Medical History / Comment(s): pt states she was a diabetic in the past but no longer takes medications or checks her blood sugar. History of Any Multi-Drug Resistant Organisms: None Reported Past Surgical History: Pacemaker Additional Past Surgical History / Comment(s): thyroid surg., pacemaker dec 2019 Past Anesthesia/Blood Transfusion Reactions: No Reported Reaction Type of Cardiac Device: Permanent Pacemaker Device Placement Date:: 2019 Past Psychological History: No Psychological Hx Reported Smoking Status: Never smoker Past Alcohol Use History: None Reported Past Drug Use History: None Reported General Exam Limitations: physical limitation General appearance: alert, in no apparent distress Head exam: Present: atraumatic Eye exam: Present: normal appearance, PERRL, EOMI. Absent: scleral icterus, c onjunctival injection, periorbital swelling ENT exam: Present: normal exam, mucous membranes moist Neck exam: Present: normal inspection, full ROM. Absent: tenderness, meningismus, lymphadenopathy Respiratory exam: Present: normal lung sounds bilaterally. Absent: respiratory distress, wheezes, rales, rhonchi, stridor Cardiovascular Exam: Present: regular rate, normal rhythm, normal heart sounds. Absent: systolic murmur, diastolic murmur, rubs, gallop, clicks GI/Abdominal exam: Present: soft, normal bowel sounds. Absent: distended, tenderness, guarding, rebound, rigid Extremities exam: Present: full ROM (Full range motion of the left leg including hip and knee and ankle joint.), normal capillary refill (Capillary refill less than 2 seconds left lower extremity, DP pulse 2+ and equal bilaterally), other (Sensation intact left lower extremity no erythema or edema.). Absent: tenderness (No tenderness of the left leg.), pedal edema, joint swelling, calf tenderness Course Vital Signs 08/29/20 08/29/20 13:40 16:12 Temperature 97.8 F Pulse Rate 58 L 68 Respiratory 20 18 Rate Blood Pressure 145/80 O2 Sat by Pulse 99 98 Oximetry EKG Findings - EKG Comments: EKG Findings:: Ventricular paced rhythm, ventricular rate 53, GA interval to 10, QTc 469 Medical Decision Making - Medical Decision Making Vitals are stable. Patient is well-appearing. Full range of motion of the left leg. No tenderness. No skin changes. Patient is ambulatory on the left leg at baseline. No antalgic gait. Denying any pain at this time. Suspect pain was radicular in nature. Patient denies back pain and does not have any lumbar tenderness. Given patient was recently hospitalized for V. tach EKG was obtained. Patient will be discharged to follow-up with primary care. She'll return for any worsening symptoms Disposition Clinical Impression: Leg pain, left Disposition: HOME SELF-CARE Condition: Good Instructions (If sedation given, give patient instructions): Leg Pain (ED) Additional Instructions: Give Tylenol as needed for pain. Otherwise follow-up with primary care and return for any worsening symptoms. Is patient prescribed a controlled substance at d/c from ED?: No Referrals: Edin Gorman MD [Primary Care Provider] - 1-2 days Time of Disposition: 15:16
[2020-08-29 16:13] VITALS: PULSE 68; RESP 18
== END 2020-08-29 16:13 | disposition home or self-care (01) ==
LOC: EC 13:06
DX: M79.605 Pain in left leg (principal); E11.9 Type 2 diabetes mellitus without complications; I10 Essential (primary) hypertension; E07.9 Disorder of thyroid, unspecified; Z79.890 Hormone replacement therapy; X50.1XXA Overexertion from prolonged static or awkward postures, initial encounter; Y92.89 Other specified places as the place of occurrence of the external cause
CPT/HCPCS: 93005; 99283

== ENCOUNTER → 2020-10-31 | Outpatient (CLI) | payer MEDICARE | END | disposition home or self-care (01) | LOC: LABWHC1 13:03 | PROVIDERS: ATTEND Internal Medicine Cardiovascular Disease | DX: I10 Essential (primary) hypertension (principal); E78.2 Mixed hyperlipidemia; I47.2 Ventricular tachycardia | CPT/HCPCS: 36415; 84443; 84450; 84460 ==

== ENCOUNTER → 2021-01-25 | Outpatient (CLI) | payer MEDICARE | END | disposition home or self-care (01) | LOC: LABWHC1 10:40 | PROVIDERS: ATTEND Internal Medicine Cardiovascular Disease | DX: I47.2 Ventricular tachycardia (principal) | CPT/HCPCS: 36415; 84443; 84450; 84460 ==

== ENCOUNTER 2022-07-25 10:05 | Emergency (ER) | payer MEDICARE, OTHER ==
[2022-07-25] MEDS ORDERED: SODIUM CHLORIDE 0.9% 1,000 ML IV STA (10:12)
[2022-07-25 10:24] VITALS: BP 198/86; PULSE 62; RESP 18; TEMP 97.4
--- NOTE | 2022-07-25 10:26 | ED ---
Weakness HPI - General Chief complaint: Fall Stated complaint: Fall Time Seen by Provider: 07/25/22 10:07 Source: patient, family, RN notes reviewed Limitations: physical limitation (Hard of hearing) - History of Present Illness Initial comments: This is an 82-year-old female who presents to the emergency department for a fall and weakness. Per EMS, the patient was using her rolling walker when she lost balance and fell. Unsure if she sustained any injuries. Patient states she has pain to her bottom. States that she did hit her head but denies any loss of consciousness. She is not taking any blood thinners. Her daughter states that they've been trying to find placement for her, as she is unable to care for her anymore. The patient is also unable to care for herself. Her daughter states that she is dehydrated and malnourished. However, her daughter has been strug gling to find placement anywhere. Patient is very hard of hearing but is otherwise A&O x4. When her daughter arrived she provided additional information. States that her information has been sent to [facility], however it has been over a month, and they have not been able to get anywhere and her doctor has not yet sent over the appropriate forms. Her daughter states that when she fell today, her legs essentially gave out on her. She has had ongoing problems with weakness in her legs causing her to fall or essentially just drop to the ground. Her daughter is unable to lift her to move her around. The patient also wants someone on each side of her whenever she walks, which her daughter is not able to do. Additionally, states that she has to have her pacemaker checked every 3 months. However, she has been unable to get her mother in the car to take her to those appointments and she is concerned that she's neglecting her medical care. Denies any fevers, chills, sore throat, cough, dyspnea, chest pain, palpitations, abdominal pain, nausea, vomiting, diarrhea, or headaches. MD Complaint: generalized weakness, difficulty walking Location: generalized - Related Data Home Medications Medication Instructions Recorded Confirmed Levothyroxine Sodium [Synthroid] 25 mcg PO DAILY 04/17/20 08/21/20 Rosuvastatin Calcium [Crestor] 5 mg PO DAILY 04/17/20 08/21/20 Risedronate Sodium [Actonel] 150 mg PO Q28D 08/21/20 08/21/20 Previous Rx's Medication Instructions Recorded Amiodarone [Cordarone] 200 mg PO DAILY #90 tab 08/23/20 carvediloL [Coreg] 25 mg PO BID #180 tablet 08/23/20 Valsartan [Diovan] 320 mg PO DAILY@2100 #30 tab 08/26/20 Azithromycin [Zithromax Z Pack] 1 tab PO DIRECTED #6 tab 05/13/22 cefUROXime axetiL [Ceftin] 500 mg PO BID 5 Days #10 tab 07/25/22 Allergies Allergy/AdvReac Type Severity Reaction Status Date / Time No Known Allergies Allergy Verified 08/29/20 13:45 Review of Systems ROS Statement: Those systems with pertinent positive or pertinent negative responses have been documented in the HPI. ROS Other: All systems not noted in ROS Statement are negative. Past Medical History Past Medical History: Diabetes Mellitus, Hypertension, Liver Disease, Thyroid Disorder Additional Past Medical History / Comment(s): pt states she was a diabetic in the past but no longer takes medications or checks her blood sugar. History of Any Multi-Drug Resistant Organisms: None Reported Past Surgical History: Pacemaker Additional Past Surgical History / Comment(s): thyroid surg., pacemaker dec 2019 Past Anesthesia/Blood Transfusion Reactions: No Reported Reaction Type of Cardiac Device: Permanent Pacemaker Device Placement Date:: 2019 Past Psychological History: No Psychological Hx Reported Smoking Status: Never smoker Past Alcohol Use History: None Reported Past Drug Use History: None Reported General Exam Limitations: physical limitation (Hard of hearing) General appearance: alert, other (Very [place]) Head exam: Present: atraumatic, normocephalic, normal inspection Eye exam: Present: normal appearance, PERRL, EOMI Respiratory exam: Present: normal lung sounds bilaterally. Absent: respiratory distress, wheezes, rales, rhonchi, stridor Cardiovascular Exam: Present: regular rate, normal rhythm, normal heart sounds. Absent: systolic murmur, diastolic murmur, rubs, gallop, clicks Neurological exam: Present: alert, oriented X3, CN II-XII intact Psychiatric exam: Present: normal affect, normal mood Skin exam: Present: warm, dry, intact, normal color. Absent: rash Course Vital Signs 07/25/22 10:20 Temperature 97.4 F L Pulse Rate 62 Respiratory 18 Rate Blood Pressure 198/86 O2 Sat by Pulse 97 Oximetry Medical Decision Making - Medical Decision Making This is an 82-year-old female who presents to the emergency department for a fall and generalized weakness. Was pt. sent in by a medical professional or institution? @ -No Did you speak to anyone other than the patient for history? @ -EMS Did you review nursing and triage notes? @ -Yes, and I agree, it is accurate with regards to the patient's symptoms. Were old charts reviewed? @ -No Differential Diagnosis? @ -Differential Weakness: Hypoglycemia, shock, sepsis, hyponatremia, anemia, infection, MT, ETOH, adverse medicine reaction, overdose, stroke, this is not meant to be an all-inclusive list. EKG interpreted by me (3pts min.)? @ -Electronic ventricular pacemaker. Ventricular rate 58 beats per minute, QRS duration 182 ms, QTC 510 ms. X-rays interpreted by me (1pt min.)? @ -Chest x-ray and x-ray of the lumbosacral spine obtained. My interpretation identifies no localized consolidations or infiltrates in the chest and I identify no evidence of any acute fractures in the lumbosacral spine. CT interpreted by me (1pt min.)? @ -Computed tomography scan of the brain and c-spine obtained. My interpretation identifies no evidence of an acute intracranial hemorrhage, skull fracture, or cervical spine fracture. U/S interpreted by me (1pt. min.)? @ -Not obtained What testing was considered but not performed? (CT, X-rays, U/S, labs)? Why? @ -None What meds were considered but not given? Why? @ -None Did you discuss the management of the patient with other professionals? @ -Yes, case management. She discussed with the patient's family that she does not meet admission criteria. She was able to get homecare set up for the patient with physical therapy and occupational therapy. She also advised that they need to continue asking the patient's doctor to fill out the [facility] forms instead of speaking with [facility]. Did you reconcile home meds? @ -No Was smoking cessation discussed for >3mins.? @ -No Was critical care preformed (if so, how long)? @ -No Were there social determinants of health that impacted care today? How? (Homelessness, low income, unemployed, alcoholism, drug addiction, transportation, low edu. Level, literacy, decrease access to med. care, shelter, rehab)? @ -No Was there de-escalation of care discussed even if they declined? (Discuss DNR or withdrawal of care, Hospice)? @ -No What co-morbidities impacted this encounter? (DM, HTN, Smoking, COPD, CAD, Cancer, CVA, Hep., AIDS, mental health diagnosis, sleep apnea, morbid obesity)? @ -DM, HTN, liver disease, thyroid disorder Was patient admitted / discharged? @ -Discharged. Lab work obtained and found to be nonactionable. Imaging including a computed tomography scan of the brain/C-spine and x-rays of the ch est and lumbosacral spine were obtained. All imaging revealed no acute findings. Urinalysis reveals moderate bacteria, however there are no white blood cells or leukoesterase. Given that she does have bacteria in the urine with increased weakness, will treat her for possible UTI. She was given c eftriaxone in the emergency department and a prescription for Ceftin was provided with dosing instructions reviewed. Case management discussed with the patient and her daughter that she does not meet admission criteria. She instructed the family to contact her primary care provider regarding [facility] placement instead of contacting [facility] directly. In the meantime, she was able to set up home care and PT/OT for the patient. Her daughter is agreeable to this. Undiagnosed new problem with uncertain prognosis? @ -None Drug Therapy requiring intensive monitoring for toxicity (Heparin, Nitro, Insulin, Cardizem)? @ -None Were any procedures done? @ -None Diagnosis/symptom? @ -Fall, weakness, UTI Acute, or Chronic, or Acute on Chronic? @ -Acute Uncomplicated (without systemic symptoms) or Complicated (systemic symptoms)? @ -Uncomplicated Side effects of treatment? @ -None Exacerbation, Progression, or Severe Exacerbation] @ -Not applicable Poses a threat to life or bodily function? @ -The weakness is making it difficult for her to function independently. Return precautions reviewed in depth, the patient is instructed to return to the emergency department with any new, worsening, or concerning symptoms. Patient verbalized understanding. This case was discussed in detail with the attending ED physician, Dr. Jacobsen. Presentation, findings, and treatment plan discussed in detail as well. - Lab Data Result diagrams: 07/25/22 10:35 07/25/22 10:35 Lab Results 07/25/22 07/25/22 07/25/22 Range/Units 10:35 10:35 10:35 WBC 6.1 (3.8-10.6) k/uL RBC 4.21 (3.80-5.40) m/uL Hgb 12.8 (11.4-16.0) gm/dL Hct 40.0 (34.0-46.0) % MCV 95.0 (80.0-100.0) fL MCH 30.5 (25.0-35.0) pg MCHC 32.2 (31.0-37.0) g/dL RDW 14.5 (11.5-15.5) % Plt Count 160 (150-450) k/uL MPV 8.5 Neutrophils % 77 % Lymphocytes % 12 % Monocytes % 7 % Eosinophils % 2 % Basophils % 0 % Neutrophils # 4.7 (1.3-7.7) k/uL Lymphocytes # 0.7 L (1.0-4.8) k/uL Monocytes # 0.4 (0-1.0) k/uL Eosinophils # 0.1 (0-0.7) k/uL Basophils # 0.0 (0-0.2) k/uL Hypochromasia Slight Sodium 144 (137-145) mmol/L Potassium 4.5 (3.5-5.1) mmol/L Chloride 114 H (98-107) mmol/L Carbon Dioxide 24 (22-30) mmol/L Anion Gap 6 mmol/L BUN 33 H (7-17) mg/dL Creatinine 0.85 (0.52-1.04) mg/dL Est GFR (CKD-EPI)AfAm 73 (>60 ml/min/1.73 sqM) Est GFR (CKD-EPI)NonAf 63 (>60 ml/min/1.73 sqM) Glucose 101 H (74-99) mg/dL Plasma Lactic Acid Vitaliy (0.7-2.0) mmol/L Calcium 9.2 (8.4-10.2) mg/dL Magnesium 2.3 (1.6-2.3) mg/dL Total Bilirubin 0.8 (0.2-1.3) mg/dL AST 30 (14-36) U/L ALT 18 (4-34) U/L Alkaline Phosphatase 87 (38-126) U/L Creatine Kinase 45 (30-135) U/L Troponin I (0.000-0.034) ng/mL Total Protein 6.3 (6.3-8.2) g/dL Albumin 3.5 (3.5-5.0) g/dL Urine Color Colorless Urine Appearance Clear (Clear) Urine pH 6.5 (5.0-8.0) Ur Specific [place] 1.008 (1.001-1.035) Urine Protein Negative (Negative) Urine Glucose (UA) Negative (Negative) Urine Ketones Negative (Negative) Urine Blood Negative (Negative) Urine Nitrite Negative (Negative) Urine Bilirubin Negative (Negative) Urine Urobilinogen <2.0 (<2.0) mg/dL Ur Leukocyte Esterase Trace H (Negative) Urine RBC 1 (0-5) /hpf Urine WBC 2 (0-5) /hpf Ur Squamous Epith Cells <1 (0-4) /hpf Urine Bacteria Moderate H (None) /hpf 07/25/22 07/25/22 Range/Units 10:35 10:35 WBC (3.8-10.6) k/uL RBC (3.80-5.40) m/uL Hgb (11.4-16.0) gm/dL Hct (34.0-46.0) % MCV (80.0-100.0) fL MCH (25.0-35.0) pg MCHC (31.0-37.0) g/dL RDW (11.5-15.5) % Plt Count (150-450) k/uL MPV Neutrophils % % Lymphocytes % % Monocytes % % Eosinophils % % Basophils % % Neutrophils # (1.3-7.7) k/uL Lymphocytes # (1.0-4.8) k/uL Monocytes # (0-1.0) k/uL Eosinophils # (0-0.7) k/uL Basophils # (0-0.2) k/uL Hypochromasia Sodium (137-145) mmol/L Potassium (3.5-5.1) mmol/L Chloride (98-107) mmol/L Carbon Dioxide (22-30) mmol/L Anion Gap mmol/L BUN (7-17) mg/dL Creatinine (0.52-1.04) mg/dL Est GFR (CKD-EPI)AfAm (>60 ml/min/1.73 sqM) Est GFR (CKD-EPI)NonAf (>60 ml/min/1.73 sqM) Glucose (74-99) mg/dL Plasma Lactic Acid Vitaliy 0.8 (0.7-2.0) mmol/L Calcium (8.4-10.2) mg/dL Magnesium (1.6-2.3) mg/dL Total Bilirubin (0.2-1.3) mg/dL AST (14-36) U/L ALT (4-34) U/L Alkaline Phosphatase (38-126) U/L Creatine Kinase (30-135) U/L Troponin I 0.034 (0.000-0.034) ng/mL Total Protein (6.3-8.2) g/dL Albumin (3.5-5.0) g/dL Urine Color Urine Appearance (Clear) Urine pH (5.0-8.0) Ur Specific [place] (1.001-1.035) Urine Protein (Negative) Urine Glucose (UA) (Negative) Urine Ketones (Negative) Urine Blood (Negative) Urine Nitrite (Negative) Urine Bilirubin (Negative) Urine Urobilinogen (<2.0) mg/dL Ur Leukocyte Esterase (Negative) Urine RBC (0-5) /hpf Urine WBC (0-5) /hpf Ur Squamous Epith Cells (0-4) /hpf Urine Bacteria (None) /hpf - Radiology Data Radiology results: report reviewed, image reviewed Disposition Clinical Impression: Fall, Weakness Disposition: HOME SELF-CARE Instructions (If sedation given, give patient instructions): Fall Prevention for Older Adults (ED) Additional Instructions: Return to the emergency department with any new, worsening, or concerning symptoms. Make sure you continue to contact her doctor in order to get the nurs ing home paperwork filled out. Have her take the antibiotic as prescribed for 5 days. Home care and PT/OT will be set up for her as well. Prescriptions: cefUROXime axetiL [Ceftin] 500 mg PO BID 5 Days #10 tab Is patient prescribed a controlled substance at d/c from ED?: No Referrals: Home Health,[facility] [NON-STAFF] - 1-2 days Mason Millard [facility] [Family Provider] - 1-2 days
[2022-07-25 11:07] LABS: Basophils % (A) 0 %; Eosinophils # (A) 0.1 k/uL (0-0.7); Eosinophils % (A) 2 %; HGB 12.8 gm/dL (11.4-16.0); Hypochromasia Slight; Lymphocytes # (A) 0.7 k/uL (1.0-4.8); Lymphocytes % (A) 12 %; MCH 30.5 pg (25.0-35.0); MCHC 32.2 g/dL (31.0-37.0); Mean Platelet Volume 8.5; Monocytes # (A) 0.4 k/uL (0-1.0); Monocytes % (A) 7 %; Neutrophils # (A) 4.7 k/uL (1.3-7.7); Neutrophils % (A) 77 %; Platelet Count 160 k/uL (150-450); RBC 4.21 m/uL (3.80-5.40); RDW 14.5 % (11.5-15.5); WBC 6.1 k/uL (3.8-10.6)
[2022-07-25 11:15] LABS: Albumin 3.5 g/dL (3.5-5.0); Calcium 9.2 mg/dL (8.4-10.2); Total Bilirubin 0.8 mg/dL (0.2-1.3); Total Protein 6.3 g/dL (6.3-8.2)
[2022-07-25 11:20] LABS: Magnesium 2.3 mg/dL (1.6-2.3); Potassium 4.5 mmol/L (3.5-5.1)
--- NOTE | 2022-07-25 11:45 | CT ---
EXAMINATION TYPE: CT brain cspine wo con DATE OF EXAM: 07/25/2022 COMPARISON: 05/13/2022 HISTORY: 82-year-old female pain after Fall CT DLP: 1343.6 mGycm Automated exposure control for dose reduction was used. Technique: Examination of the head was done in axial plane without intravenous contrast. Coronal and sagittal reconstructions performed. CT of the cervical spine was obtained in axial plane without intravenous injection of contrast mater ial. Coronal and sagittal reformatted images were obtained from the axial views for evaluation of f ractures, spinal alignment and canal. FINDINGS: Head: Redemonstrated mostly calcified mass left paramedian occipital lobe measuring 2.9 cm, unchanged. Some mild adjacent white matter hypodensity remains unchanged. A midline, calcified mass along the midline falx measuring 1.8 cm wide also remains unchanged. Noncalcified extra-axial median, left paramedian mass along the superior frontoparietal convexity [place] suring 2.2 cm wide also unchanged. These show no mass effect. No midline shift or hydrocephalus. No extra-axial fluid collection seen. No evidence for acute intracranial hemorrhage, acute ischemic change, effacement of cerebral sulci an d basal subarachnoid cisterns. Ryder-white matter [place] sheath is maintained. Moderate patchy white matter hypodensities in both cerebral hemispheres. Benign hyperostosis frontalis in turn. Paranasal sinuses are well pneumatized. There is trapped fluid throughout the right mastoid air cells extending into some of the right middle ear cavity which was present previously as well. The previous paranasal sinus disease has significantly improved. Cervical spine: Very bulky, heterogeneous, nodular thyroid gland for which thyroid ultrasound is recommended to [facility] evaluate. No craniocervical junction abnormality, predental space widening, or prevertebral soft tissue swellin g. Degenerative change of the C1 dens articulation. Moderate spondylotic change mid to lower cervical spine. Degenerative grade 1 anterolisthesis C5-C6. Disc osteophyte complex at both C5-C6 and C6-C7 may contribute to moderate spinal canal stenoses at t hese levels. Possible left paracentral disc herniation at C7-T1 may also causing moderate spinal canal stenosis. M RI if clinically indicated. No acute fracture seen of the cervical spine. Changes result in a moderate right neuroforaminal stenosis at C5-C6, both sides at C6-C7. Sagittal and coronal reformatted images confirm above findings. COMBINED IMPRESSION: Head 1. Approximately 3 extra-axial masses, 2 of which are calcified. Measuring up to 2.9 cm. These remain unchanged from 05/13/2022 suggesting meningiomas. 2. Moderate chronic burden of chronic small vessel ischemic disease. No acute intracranial abnormalit y seen. 3. Fluid within the right mastoid air cells and some within the right middle ear cavity. Correlate fo r right-sided otomastoiditis. The previous extensive paranasal sinus disease has cleared in the inter santosh. Cervical spine 4. No acute fracture of the cervical spine. Degenerative grade 1 anterolisthesis at C5-C6. Findings Possible left paracentral disc herniation at C7-T1. This may contribute to a moderate spinal canal stenosis. MRI if clinically indicated. 6. Additional disc osteophyte complexes at C5-C6 and C6/C7 may also contribute to moderate spinal can al stenosis.
--- NOTE | 2022-07-25 12:18 | XR ---
EXAMINATION TYPE: XR chest 2V DATE OF EXAM: 07/25/2022 COMPARISON: Chest x-ray May 13, 2022 HISTORY: Weakness. TECHNIQUE: Frontal and lateral views of the chest are obtained. FINDINGS: There is some chronic parenchymal changes bilaterally without suspicious focal air space o pacity, pleural effusion, or pneumothorax seen. Persistent mild cardiomegaly with dual lead pacemaker /defibrillator and atherosclerotic thoracic aorta. The osseous structures remain demineralized. Cho lecystectomy clips are redemonstrated on lateral view. IMPRESSION: Chronic changes and cardiomegaly without acute pulmonary process. No significant change from prior chest x-ray.
--- NOTE | 2022-07-25 12:32 | XR ---
EXAMINATION TYPE: XR lumbosacral spine min 4V DATE OF EXAM: 07/25/2022 CLINICAL HISTORY: Fall injury with pain TECHNIQUE: Frontal, lateral, and oblique images of the lumbar spine are obtained. COMPARISON: None. FINDINGS: There are 5 lumbar type vertebral bodies identified. The lumbar spine shows slight levoco nvex scoliotic curvature without evidence of acute fracture or dislocation. Vertebral body height are within normal limits. Moderate disc space narrowing and spurring anteriorly at L2-L3 level. Mild dis c space narrowing L5-S1 level The oblique images appear within normal limits. Cholecystectomy clips a re noted in the overlying soft tissue. IMPRESSION: As above.
[2022-07-25 13:41] LABS: Appearance,Urine Clear (Clear); Bacteria,Urine Moderate /hpf; Bilirubin,Urine Negative (Negative); Blood,Urine Negative (Negative); Color,Urine Colorless; Glucose,Urine (UA) Negative (Negative); Ketones,Urine Negative (Negative); Leukocyte Esterase,Urine Trace (Negative); Nitrite,Urine Negative (Negative); PH, Urine 6.5 (5.0-8.0); Protein,Urine Negative (Negative); RBC,Urine 1 /hpf (0-5); Specific Gravity,Urine 1.008 (1.001-1.035); Squamous Epithelial Cell,Urine <1 /hpf (0-4); Urobilinogen,Urine <2.0 mg/dL (<2.0); WBC,Urine 2 /hpf (0-5)
[2022-07-25] MEDS ORDERED: cefTRIAXone IN SWFI 1,000 MG/10 ML SYRINGE IVP STA (13:49)
== END 2022-07-25 14:32 | disposition home or self-care (01) ==
LOC: EC 10:05
DX: R53.1 Weakness (principal); E11.9 Type 2 diabetes mellitus without complications; I10 Essential (primary) hypertension; E07.9 Disorder of thyroid, unspecified; Z79.890 Hormone replacement therapy; Z79.899 Other long term (current) drug therapy; W01.0XXA Fall on same level from slipping, tripping and stumbling without subsequent striking against object, initial encounter
CPT/HCPCS: 36415; 70450; 71046; 72110; 72125; 80053; 81001; 82550; 83605; 83735; 84484; 85025; 87086; 93005; 96361; 96374; 99285

== ENCOUNTER 2022-08-06 13:24 | Emergency (ER) | payer MEDICARE, OTHER ==
[2022-08-06 14:09] VITALS: RESP 20; TEMP 98.2
[2022-08-06 14:44] LABS: Basophils % (A) 0 %; Eosinophils # (A) 0.1 k/uL (0-0.7); Eosinophils % (A) 2 %; HCT 40.7 % (34.0-46.0); HGB 13.2 gm/dL (11.4-16.0); Lymphocytes # (A) 0.8 k/uL (1.0-4.8); Lymphocytes % (A) 16 %; MCH 30.4 pg (25.0-35.0); MCHC 32.3 g/dL (31.0-37.0); Mean Platelet Volume 8.8; Monocytes # (A) 0.5 k/uL (0-1.0); Monocytes % (A) 9 %; Neutrophils # (A) 3.4 k/uL (1.3-7.7); Neutrophils % (A) 69 %; Platelet Count 166 k/uL (150-450); RBC 4.33 m/uL (3.80-5.40); RDW 14.6 % (11.5-15.5); WBC 4.9 k/uL (3.8-10.6)
[2022-08-06 14:55] LABS: Albumin 3.6 g/dL (3.5-5.0); Calcium 9.4 mg/dL (8.4-10.2); Magnesium 2.5 mg/dL (1.6-2.3); Potassium 5.5 mmol/L (3.5-5.1); Total Bilirubin 0.5 mg/dL (0.2-1.3); Total Protein 6.3 g/dL (6.3-8.2)
--- NOTE | 2022-08-06 14:55 | XR ---
EXAMINATION TYPE: XR chest 2V DATE OF EXAM: 08/06/2022 COMPARISON: Chest x-ray July 25, 2022 HISTORY: Weakness. TECHNIQUE: Frontal and lateral views of the chest are obtained. FINDINGS: Background chronic emphysematous change redemonstrated. There is no suspicious new focal a ir space opacity, pleural effusion, or pneumothorax seen. The cardiac silhouette size is stable and upper limits of normal with dual lead pacemaker/defibrillator. The osseous structures are demineral ized. Cholecystectomy clips are redemonstrated. IMPRESSION: Chronic changes without acute pulmonary process.
--- NOTE | 2022-08-06 14:56 | XR ---
EXAMINATION TYPE: XR shoulder complete LT DATE OF EXAM: 08/06/2022 CLINICAL HISTORY: Pain. TECHNIQUE: Three views of the left shoulder are obtained. COMPARISON: None. FINDINGS: Osseous structures are demineralized which is noted to lower radiographic sensitivity. The re is no acute fracture/dislocation evident in the shoulder. The acromioclavicular and glenohumeral joint spaces appear within normal limits. Distal acromion morphology unremarkable. The visualized ri bs are intact. There is partial visualization of left chest wall pacemaker device. IMPRESSION: As above.
[2022-08-06 15:04] LABS: Appearance,Urine Clear (Clear); Bilirubin,Urine Negative (Negative); Blood,Urine Negative (Negative); Color,Urine Light Yellow; Glucose,Urine (UA) Negative (Negative); Ketones,Urine Negative (Negative); Leukocyte Esterase,Urine Negative (Negative); Nitrite,Urine Negative (Negative); PH, Urine 6.5 (5.0-8.0); Protein,Urine Negative (Negative); Specific Gravity,Urine 1.006 (1.001-1.035); Urobilinogen,Urine <2.0 mg/dL (<2.0)
[2022-08-06 15:13] LABS: INR 0.9 (<1.2)
[2022-08-06 15:15] LABS: Partial Thromboplastin Time 19.7 sec (22.0-30.0)
--- NOTE | 2022-08-06 15:17 | CT ---
EXAMINATION TYPE: CT brain cspine wo con DATE OF EXAM: 08/06/2022 COMPARISON: Trauma CT 12 days ago HISTORY: UTI, recurrent falls, Lt leg weakness. Neck pain after traumatic injury. CT DLP: 1244.8 mGycm. Automated Exposure Control for Dose Reduction was Utilized. TECHNIQUE: CT scan of the head and cervical spine are performed without contrast. FINDINGS: There is no acute intracranial hemorrhage or midline shift identified. Mild ventricular a nd sulcal prominence redemonstrated. Moderate to severe low-attenuation in the deep and periventricul ar white matter redemonstrated. 2 calcified meningiomas axial image 38 and 44 redemonstrated. Hyperde nse 1.2 cm superior meningioma axial image 53 redemonstrated. The calvarium is intact. Hyperostosis i s redemonstrated. Opacified right mastoid air cells are again seen. Scleral calcification right globe redemonstrated. Visualized paranasal sinuses are clear. Cervical spine is visualized in its entirety from C1 through upper thoracic levels and demonstrates s atisfactory alignment without evidence of acute fracture or dislocation. Prevertebral soft tissue ap pears within normal limits. The C1-C2 articulation is within normal limits on the coronal images. Ve rtebral body heights are preserved. Moderate disc space narrowing with moderate to severe spurring at C5-C6 and C6-C7 levels is redemonstrated. Effacement of the anterior thecal sac at these levels is a gain seen. Axial images redemonstrate multilevel uncovertebral facet degenerative changes. There is h eterogeneous enlarged left thyroid lobe redemonstrated. No pneumothorax is evident. There is partial visualization of left sided pacemaker. IMPRESSION: 1. There is no acute fracture or dislocation evident in the cervical spine. 2. No acute intracranial hemorrhage or midline shift is seen. No significant change from recent trauma CT.
[2022-08-06] MEDS ORDERED: NALOXONE 0.4 MG/ML 1 ML VIAL IV PRN (15:49)
--- NOTE | 2022-08-06 15:49 | ED ---
Weakness HPI - General Chief complaint: Weakness Stated complaint: weakness, poss uti Time Seen by Provider: 08/06/22 14:00 Source: patient, EMS Mode of arrival: EMS Limitations: physical limitation - History of Present Illness Initial comments: 82-year-old female with past history of diabetes mellitus diet controlled, hypertension who presents to the emergency department for failure to thrive. It is reported by EMS that the patient has been increasingly weak and having multiple falls. She was seen on the ninth at our facility for falls. She sust ained another fall today where she hit her left shoulder and possibly her head. She states it's due to chronic weakness in her left lower extremity. It was also reported by EMS that she currently has a urinary tract infection. They placed the patient on Bactrim however she wasn't getting better. They spoke with the visiting physician who switched her to Cipro. The patient has not been getting this new medication as the daughter has been withholding it for various reasons. The patient has only received approximately 5 tablets of antibiotics for this current infection. Patient does arrive and has bedbug infestation. The remainder the HPI is limited because the patient is extremely hard of hearing - Related Data Home Medications Medication Instructions Recorded Confirmed Levothyroxine Sodium [Synthroid] 25 mcg PO DAILY 04/17/20 08/06/22 Rosuvastatin Calcium [Crestor] 5 mg PO HS 04/17/20 08/06/22 Amiodarone [Cordarone] 200 mg PO BID 08/06/22 08/06/22 Cholecalciferol [Vitamin D3 (125 125 mcg PO DAILY 08/06/22 08/06/22 Mcg = 5000 Iu)] Ciprofloxacin HCl [Cipro] 500 mg PO BID 08/06/22 08/06/22 Ferrous Sulfate [Feosol] 325 mg PO DAILY 08/06/22 08/06/22 Furosemide [Lasix] 40 mg PO DAILY 08/06/22 08/06/22 Potassium Chloride ER [K-Dur 10] 10 meq PO DAILY 08/06/22 08/06/22 Valsartan [Diovan] 320 mg PO DAILY 08/06/22 08/06/22 Vit C/E/Zn/Coppr/Lutein/Zeaxan 1 cap PO DAILY 08/06/22 08/06/22 [Preservision Areds 2 Softgel] Previous Rx's Medication Instructions Recorded carvediloL [Coreg] 25 mg PO BID #180 tablet 08/23/20 Allergies Allergy/AdvReac Type Severity Reaction Status Date / Time No Known Allergies Allergy Verified 08/06/22 16:28 Review of Systems ROS Statement: Those systems with pertinent positive or pertinent negative responses have been documented in the HPI. ROS Other: All systems not noted in ROS Statement are negative. Past Medical History Past Medical History: Diabetes Mellitus, Hypertension, Liver Disease, Thyroid D isorder Additional Past Medical History / Comment(s): pt states she was a diabetic in the past but no longer takes medications or checks her blood sugar. History of Any Multi-Drug Resistant Organisms: None Reported Past Surgical History: Pacemaker Additional Past Surgical History / Comment(s): thyroid surg., pacemaker dec 2019 Past Anesthesia/Blood Transfusion Reactions: No Reported Reaction Type of Cardiac Device: Permanent Pacemaker Device Placement Date:: 2019 Past Psychological History: No Psychological Hx Reported Smoking Status: Never smoker Past Alcohol Use History: None Reported Past Drug Use History: None Reported General Exam Limitations: physical limitation (Heart of hearing) General appearance: alert, in no apparent distress Head exam: Present: atraumatic, normocephalic, normal inspection Eye exam: Present: normal appearance, PERRL, EOMI. Absent: scleral icterus, conjunctival injection, periorbital swelling ENT exam: Present: normal exam, mucous membranes moist Neck exam: Present: normal inspection. Absent: tenderness, meningismus, lymphadenopathy Respiratory exam: Present: normal lung sounds bilaterally. Absent: respiratory distress, wheezes, rales, rhonchi, stridor Cardiovascular Exam: Present: regular rate, normal rhythm, normal heart sounds. Absent: systolic murmur, diastolic murmur, rubs, gallop, clicks GI/Abdominal exam: Present: soft, normal bowel sounds. Absent: distended, tenderness, guarding, rebound, rigid Extremities exam: Present: other (3 out of 5 weakness of her bilateral lower extremities) Back exam: Present: normal inspection Neurological exam: Present: alert, oriented X3, CN II-XII intact Psychiatric exam: Present: normal affect, normal mood Skin exam: Present: warm, dry, intact, normal color. Absent: rash Course Vital Signs 08/06/22 08/06/22 13:57 16:07 Temperature 98.2 F Pulse Rate 57 L 55 L Respiratory 20 20 Rate Blood Pressure 149/69 162/76 O2 Sat by Pulse 98 100 Oximetry EKG Findings - EKG Comments: EKG Findings:: EKG demonstrates atrial sensed ventricularly paced rhythm with a rate of 52. AR interval 20. QRS 182. QTC of 505. Pacemaker captures appropriately. No acute ST segment elevation or depression Medical Decision Making - Medical Decision Making Was pt. sent in by a medical professional or institution (, PA, SPORTS TEAM MARKETING INTERN, urgent care, hospital, or retirement...) When possible be specific @ -No Did you speak to anyone other than the patient for history (EMS, parent, family, police, friend...)? What history was obtained from this source @ -EMS Did you review nursing and triage notes (agree or disagree)? Why? @ -I reviewed and agree with nursing and triage notes Were old charts reviewed (outside hosp., previous admission, EMS record, old EK G, old radiological studies, urgent care reports/EKG's, retirement records)? Report findings @ -Discharge summary from last ER visit was reviewed. Patient was discharged home. They set her up with home care Differential Diagnosis (chest pain, altered mental status, abdominal pain women, abdominal pain men, vaginal bleeding, weakness, fever, dyspnea, syncope, headache, dizziness, GI bleed, back pain, seizure, CVA, palpatations, mental health, musculoskeletal)? @ -Differential Weakness: Hypoglycemia, shock, sepsis, hyponatremia, anemia, infection, WI, ETOH, adverse medicine reaction, overdose, stroke, this is not meant to be an all-inclusive list. EKG interpreted by me (3pts min.). @ -Yes and demonstrates normal sinus rhythm X-rays interpreted by me (1pt min.). @ -Yes and demonstrates no acute injuries CT interpreted by me (1pt min.). @ -CT demonstrates no acute intracranial process U/S interpreted by me (1pt. min.). @ -None done What testing was considered but not performed or refused? (CT, X-rays, U/S, labs)? Why? @ -None What meds were considered but not given or refused? Why? @ -None Did you discuss the management of the patient with other professionals (professionals i.e. , [facility], SPORTS TEAM MARKETING INTERN, lab, RT, psych nurse, social service technician, production roustabout, teacher, armed security officer, mattress spring encaser)? Give summary @ -Spoke with two mattress spring encaser's Was smoking cessation discussed for >3mins.? @ -No Was critical care preformed (if so, how long)? @ -No Were there social determinants of health that impacted care today? How? (Homelessness, low income, unemployed, alcoholism, drug addiction, transportation, low edu. Level, literacy, decrease access to med. care, nursing home, rehab)? @ -No Was there de-escalation of care discussed even if they declined (Discuss DNR or withdrawal of care, Hospice)? DNR status @ -No What co-morbidities impacted this encounter? (DM, HTN, Smoking, COPD, CAD, Cancer, CVA, ARF, Chemo, Hep., AIDS, mental health diagnosis, sleep apnea, morbid obesity)? @ -dementia Was patient admitted / discharged? Hospital course, mention meds given and route, prescriptions, significant lab abnormalities, going to OR and other pertinent info. @ -Upon arrival patient has a bedbug and therefore she is placed in the decontamination room and showered. She is then placed into room 1. A thorough history and physical exam is performed. IV access is established and patient is started on gentle fluids. Laboratory studies are conducted. Patient does provide a urine sample. CT of the patient's brain and cervical spine is performed. X-ray performed of the patient's chest and left shoulder. I did review the laboratory studies and imaging. No acute lab abnormality. No urinary tract infection. No traumatic injuries from fall. Case management does attempt to transfer the patient to [facility] however the mattress spring encaser had to leave and therefore I am told that transfer would not happen today. Patient was originally placed for admission with PT, OT and case management consult. The mattress spring encaser does come from the floor and is able to facilitate transfer to [facility]. Patient will be discharged at this time. Patient will be tr ansferred by wheelchair van. Patient transferred in stable condition Undiagnosed new problem with uncertain prognosis? @ -No Drug Therapy requiring intensive monitoring for toxicity (Heparin, Nitro, Insulin, Cardizem)? @ -No Were any procedures done? @ -No Diagnosis/symptom? @ -Acute weakness, failure to thrive, bedbug infestation Acute, or Chronic, or Acute on Chronic? @ -Acute on chronic Uncomplicated (without systemic symptoms) or Complicated (systemic symptoms)? @ -Complicated Side effects of treatment? @ -No Exacerbation, Progression, or Severe Exacerbation? @ -No Poses a threat to life or bodily function? How? (Chest pain, [place], WI, pneumonia, PE, COPD, DKA, ARF, appy, cholecystitis, CVA, Diverticulitis, Homicidal, Suicidal, threat to staff... and all critical care pts) @ -No - Lab Data Result diagrams: 08/06/22 14:25 08/06/22 14:25 Lab Results 08/06/22 08/06/22 08/06/22 Range/Units 14:25 14:25 14:25 WBC 4.9 (3.8-10.6) k/uL RBC 4.33 (3.80-5.40) m/uL Hgb 13.2 (11.4-16.0) gm/dL Hct 40.7 (34.0-46.0) % MCV 94.0 (80.0-100.0) fL MCH 30.4 (25.0-35.0) pg MCHC 32.3 (31.0-37.0) g/dL RDW 14.6 (11.5-15.5) % Plt Count 166 (150-450) k/uL MPV 8.8 Neutrophils % 69 % Lymphocytes % 16 % Monocytes % 9 % Eosinophils % 2 % Basophils % 0 % Neutrophils # 3.4 (1.3-7.7) k/uL Lymphocytes # 0.8 L (1.0-4.8) k/uL Monocytes # 0.5 (0-1.0) k/uL Eosinophils # 0.1 (0-0.7) k/uL Basophils # 0.0 (0-0.2) k/uL PT 10.0 (9.0-12.0) sec INR 0.9 (<1.2) APTT 19.7 L (22.0-30.0) sec Sodium 139 (137-145) mmol/L Potassium 5.5 H (3.5-5.1) mmol/L Chloride 107 (98-107) mmol/L Carbon Dioxide 26 (22-30) mmol/L Anion Gap 6 mmol/L BUN 27 H (7-17) mg/dL Creatinine 0.96 (0.52-1.04) mg/dL Est GFR (CKD-EPI)AfAm 63 (>60 ml/min/1.73 sqM) Est GFR (CKD-EPI)NonAf 55 (>60 ml/min/1.73 sqM) Glucose 102 H (74-99) mg/dL Plasma Lactic Acid Vitaliy (0.7-2.0) mmol/L Calcium 9.4 (8.4-10.2) mg/dL Magnesium 2.5 H (1.6-2.3) mg/dL Total Bilirubin 0.5 (0.2-1.3) mg/dL AST 32 (14-36) U/L ALT 24 (4-34) U/L Alkaline Phosphatase 96 (38-126) U/L Troponin I (0.000-0.034) ng/mL Total Protein 6.3 (6.3-8.2) g/dL Albumin 3.6 (3.5-5.0) g/dL Urine Color Urine Appearance (Clear) Urine pH (5.0-8.0) Ur Specific [place] (1.001-1.035) Urine Protein (Negative) Urine Glucose (UA) (Negative) Urine Ketones (Negative) Urine Blood (Negative) Urine Nitrite (Negative) Urine Bilirubin (Negative) Urine Urobilinogen (<2.0) mg/dL Ur Leukocyte Esterase (Negative) 08/06/22 08/06/22 08/06/22 Range/Units 14:25 14:25 14:37 WBC (3.8-10.6) k/uL RBC (3.80-5.40) m/uL Hgb (11.4-16.0) gm/dL Hct (34.0-46.0) % MCV (80.0-100.0) fL MCH (25.0-35.0) pg MCHC (31.0-37.0) g/dL RDW (11.5-15.5) % Plt Count (150-450) k/uL MPV Neutrophils % % Lymphocytes % % Monocytes % % Eosinophils % % Basophils % % Neutrophils # (1.3-7.7) k/uL Lymphocytes # (1.0-4.8) k/uL Monocytes # (0-1.0) k/uL Eosinophils # (0-0.7) k/uL Basophils # (0-0.2) k/uL PT (9.0-12.0) sec INR (<1.2) APTT (22.0-30.0) sec Sodium (137-145) mmol/L Potassium (3.5-5.1) mmol/L Chloride (98-107) mmol/L Carbon Dioxide (22-30) mmol/L Anion Gap mmol/L BUN (7-17) mg/dL Creatinine (0.52-1.04) mg/dL Est GFR (CKD-EPI)AfAm (>60 ml/min/1.73 sqM) Est GFR (CKD-EPI)NonAf (>60 ml/min/1.73 sqM) Glucose (74-99) mg/dL Plasma Lactic Acid Vitaliy 0.9 (0.7-2.0) mmol/L Calcium (8.4-10.2) mg/dL Magnesium (1.6-2.3) mg/dL Total Bilirubin (0.2-1.3) mg/dL AST (14-36) U/L ALT (4-34) U/L Alkaline Phosphatase (38-126) U/L Troponin I 0.032 (0.000-0.034) ng/mL Total Protein (6.3-8.2) g/dL Albumin (3.5-5.0) g/dL Urine Color Light Yellow Urine Appearance Clear (Clear) Urine pH 6.5 (5.0-8.0) Ur Specific [place] 1.006 (1.001-1.035) Urine Protein Negative (Negative) Urine Glucose (UA) Negative (Negative) Urine Ketones Negative (Negative) Urine Blood Negative (Negative) Urine Nitrite Negative (Negative) Urine Bilirubin Negative (Negative) Urine Urobilinogen <2.0 (<2.0) mg/dL Ur Leukocyte Esterase Negative (Negative) Disposition Clinical Impression: Weakness, Fall, Left shoulder pain, Infestation by bed bug Disposition: OTHER INSTITUTION NOT DEFINED Condition: Stable Is patient prescribed a controlled substance at d/c from ED?: No Referrals: Roosevelt Bonilla MD [Primary Care Provider] - 1-2 days Time of Disposition: 15:48 Decision to Admit Reason: Admit from EC Decision Date: 08/06/22 Decision Time: 15:48 - Out of Hospital Transfer - Req. Specs Out of Hospital Transfer - Requested Specifics: Other Non-Acute ([facility] [place])
[2022-08-06] MEDS ORDERED: SODIUM CHLORIDE 0.9% 1,000 ML IV SCH (16:00)
[2022-08-06 16:11] VITALS: BP 162/76; PULSE 55
== END 2022-08-06 17:40 | disposition other institution (70) ==
LOC: EC 13:24 → UNDOADMIN 15:49 → 4SSUR 15:49 → EC 17:40
DX: M25.512 Pain in left shoulder (principal); B88.9 Infestation, unspecified; R53.1 Weakness; I10 Essential (primary) hypertension; E11.9 Type 2 diabetes mellitus without complications; E07.9 Disorder of thyroid, unspecified; Z79.890 Hormone replacement therapy; Z79.899 Other long term (current) drug therapy; W06.XXXA Fall from bed, initial encounter
CPT/HCPCS: 36415; 70450; 71046; 72125; 80053; 81003; 83605; 83735; 84484; 85025; 85610; 85730; 93005; 96360; 99285

== ENCOUNTER 2022-10-07 17:52 | Inpatient (IN) | payer MEDICARE, OTHER ==
[2022-10-07 18:36] LABS: INR 1.2 (<1.2); Partial Thromboplastin Time 27.7 sec (22.0-30.0); Prothrombin Time 12.2 sec (9.0-12.0)
--- NOTE | 2022-10-07 18:45 | XR ---
EXAMINATION TYPE: XR chest 2V DATE OF EXAM: 10/07/2022 6:38 PM COMPARISON: Chest radiographs from 08/06/2022 TECHNIQUE: XR chest 2V Frontal and lateral views of the chest. CLINICAL INDICATION:Female, 82 years old with history of CP; FINDINGS: Lungs/Pleura: No pneumothorax. Small right and moderate left pleural effusions. Left/lower lung patch y airspace opacities. Pulmonary vascularity: Unremarkable. Heart/mediastinum: Cardiomediastinal silhouette is enlarged and stable. Atherosclerotic calcificatio ns are seen in the aorta. Two lead cardiac conduction device overlying the left hemithorax with lead tips projecting over the right ventricle and right atrium. Musculoskeletal: No acute osseous pathology. IMPRESSION: Cardiomegaly with small right and moderate-sized left pleural effusions. Patchy left mid/lower lung a irspace opacities concerning for pneumonia.
[2022-10-07 18:59] LABS: ALT 424 U/L (4-34); AST 289 U/L (14-36); African American GFR (CKD) >90 (>60 ml/min/1.73 sqM); Albumin 1.7 g/dL (3.5-5.0); Alkaline Phosphatase 137 U/L (38-126); Anion Gap 3 mmol/L; Blood Urea Nitrogen 23 mg/dL (7-17); Carbon Dioxide 18 mmol/L (22-30); Chloride 116 mmol/L (98-107); Glucose 63 mg/dL (74-99); Magnesium 1.7 mg/dL (1.6-2.3); Non-African American GFR(CKD) 85 (>60 ml/min/1.73 sqM); Sodium 137 mmol/L (137-145); Total Bilirubin 0.8 mg/dL (0.2-1.3); Total Protein 3.9 g/dL (6.3-8.2)
[2022-10-07 19:07] LABS: NT-Pro-B-Type Natriuretic Pept 4090 pg/mL
[2022-10-07 19:47] LABS: Basophils % (A) 0 %; Eosinophils % (A) 1 %; HCT 23.2 % (34.0-46.0); Hypochromasia Moderate; Lymphocytes # (A) 0.2 k/uL (1.0-4.8); Lymphocytes % (A) 10 %; MCH 29.5 pg (25.0-35.0); MCHC 30.9 g/dL (31.0-37.0); MCV 95.4 fL (80.0-100.0); Mean Platelet Volume 9.1; Monocytes # (A) 0.2 k/uL (0-1.0); Monocytes % (A) 10 %; Neutrophils # (A) 1.7 k/uL (1.3-7.7); Neutrophils % (A) 78 %; RBC 2.43 m/uL (3.80-5.40); RDW 15.9 % (11.5-15.5); WBC 2.1 k/uL (3.8-10.6)
[2022-10-07 19:51] LABS: HGB 7.2 gm/dL (11.4-16.0)
[2022-10-07 20:21] LABS: Crenated RBC Present; Platelet Count 73 k/uL (150-450); Poikilocytosis (M) Present
[2022-10-07] MEDS ORDERED: VANCOMYCIN IV PER PHARMACY 1 EACH MISC MISCELLANE PRN (20:40)
[2022-10-07] MEDS ORDERED: CEFEPIME 1 GM in SODIUM CHLORIDE 0.9% 50 ML IVPB STA (20:40)
[2022-10-07] MEDS ORDERED: NALOXONE 0.4 MG/ML 1 ML VIAL IV PRN (20:49)
--- NOTE | 2022-10-07 20:49 | ED ---
General Adult HPI - General Chief complaint: Shortness of Breath Stated complaint: Covid +, poss UTI Time Seen by Provider: 10/07/22 17:55 Source: EMS Mode of arrival: EMS Limitations: no limitations - History of Present Illness Initial comments: This is a 82-year-old female with a known past medical history including dementia and hypertension presents emergency department via EMS from her nursing facility for hypoxia in the setting of recent diagnosis of Covid. The patient reportedly was 80% on room air and did have some noted respiratory distress th erefore EMS was called. The patient was ANO times one however on evaluation cannot provide any answers to history. The patient was on a nonrebreather however did have a oxygen saturations 98%. No further history could be obtained at this time. - Related Data Home Medications Medication Instructions Recorded Confirmed Amiodarone [Cordarone] 200 mg PO BID 08/06/22 10/07/22 Cholecalciferol [Vitamin D3 (125 125 mcg PO DAILY 08/06/22 10/07/22 Mcg = 5000 Iu)] Ferrous Sulfate [Feosol] 325 mg PO DAILY 08/06/22 10/07/22 Vit C/E/Zn/Coppr/Lutein/Zeaxan 1 cap PO DAILY 08/06/22 10/07/22 [Preservision Areds 2 Softgel] Acetaminophen Tab [Tylenol] 650 mg PO Q6H PRN 10/07/22 10/07/22 Atorvastatin [Lipitor] 10 mg PO HS 10/07/22 10/07/22 Lac-Hydrin Five External Lotion 5% 1 applic TOPICAL BID 10/07/22 10/07/22 Losartan [Cozaar] 50 mg PO DAILY 10/07/22 10/07/22 Previous Rx's Medication Instructions Recorded carvediloL [Coreg] 25 mg PO BID #180 tablet 08/23/20 Allergies Allergy/AdvReac Type Severity Reaction Status Date / Time No Known Allergies Allergy Verified 10/07/22 18:34 Review of Systems ROS Statement: Those systems with pertinent positive or pertinent negative responses have been documented in the HPI. ROS Other: All systems not noted in ROS Statement are negative. Past Medical History Past Medical History: Diabetes Mellitus, Hypertension, Liver Disease, Thyroid Disorder Additional Past Medical History / Comment(s): pt states she was a diabetic in the past but no longer takes medications or checks her blood sugar. History of Any Multi-Drug Resistant Organisms: None Reported Past Surgical History: Pacemaker Additional Past Surgical History / Comment(s): thyroid surg., pacemaker dec 2019 Past Anesthesia/Blood Transfusion Reactions: No Reported Reaction Type of Cardiac Device: Permanent Pacemaker Device Placement Date:: 2019 Past Psychological History: No Psychological Hx Reported Smoking Status: Never smoker Past Alcohol Use History: None Reported Past Drug Use History: None Reported General Exam Limitations: altered mental status (ANOx1 at baseline) General appearance: alert, in no apparent distress Head exam: Present: atraumatic, normocephalic, normal inspection Eye exam: Present: normal appearance, PERRL Pupils: Present: normal accommodation ENT exam: Present: normal exam, normal oropharynx, mucous membranes moist Neck exam: Present: normal inspection, full ROM Respiratory exam: Present: decreased breath sounds. Absent: wheezes Cardiovascular Exam: Present: bradycardia, normal heart sounds GI/Abdominal exam: Present: soft, normal bowel sounds Extremities exam: Present: normal inspection, full ROM Back exam: Present: normal inspection, full ROM Neurological exam: Present: altered (ANOx1, at baseline) Psychiatric exam: Present: normal affect, normal mood Skin exam: Present: warm, dry Course Vital Signs 10/07/22 10/07/22 10/07/22 17:54 18:23 18:30 Temperature 94.5 F L Pulse Rate 52 L 52 L Respiratory 22 22 18 Rate Blood Pressure 93/69 116/61 O2 Sat by Pulse 92 L 93 L Oximetry 10/07/22 10/07/22 10/07/22 18:40 18:50 19:00 Temperature Pulse Rate Respiratory Rate Blood Pressure 106/79 106/79 O2 Sat by Pulse 93 L 92 L Oximetry 10/07/22 20:00 Temperature Pulse Rate 59 L Respiratory Rate Blood Pressure 109/91 O2 Sat by Pulse 94 L Oximetry EKG Findings - EKG Comments: EKG Findings:: An EKG was obtained and was interpreted by myself showing a rate of 53, NM interval 196, QR judaism of 181 and QTC of 570. This EKG showed an electronically ventricularly paced rhythm without any ST segment elevation or depression noted. There was no significant change in EKG from her previous EKG on 08/06/2022. Medical Decision Making - Medical Decision Making Was pt. sent in by a medical professional or institution (, PA, BUSINESS CONTINUITY ANALYST, urgent care, hospital, or [facility]...) When possible be specific @ -Yes, patient sent in from her nursing facility Did you speak to anyone other than the patient for history (EMS, parent, family, police, friend...)? What history was obtained from this source @ -Yes, EMS was hypoxic on their arrival but was at her baseline. They did also report that the patient tested positive for COVID-19 today. Did you review nursing and triage notes (agree or disagree)? Why? @ -I reviewed and agree with nursing and triage notes Were old charts reviewed (outside hosp., previous admission, EMS record, old EKG, old radiological studies, urgent care reports/EKG's, m[facility] records)? Report findings @ -No old charts were reviewed Differential Diagnosis (chest pain, altered mental status, abdominal pain women, abdominal pain men, vaginal bleeding, weakness, fever, dyspnea, syncope, headache, dizziness, GI bleed, back pain, seizure, CVA, palpatations, mental health)? @ -COVID-19, pneumonia, sepsis, UTI EKG interpreted by me (3pts min.). @ -As above X-rays interpreted by me (1pt min.). @ -Chest x-ray was obtained and was interpreted by myself showing cardio megaly with small right and moderate size left pleural effusions. There was patchy left/lower lung airspace opacities concerning for pneumonia. CT interpreted by me (1pt min.). @ -None done U/S interpreted by me (1pt. min.). @ -None done What testing was considered but not performed or refused? (CT, X-rays, U/S, labs)? Why? @ -None What meds were considered but not given or refused? Why? @ -None Did you discuss the management of the patient with other professionals (professionals i.e. , PA, BUSINESS CONTINUITY ANALYST, lab, RT, psych nurse, social worker aide, flarer, t eacher, child support officer, vocational case manager)? Give summary @ -Yes, admitting physician was contacted regarding patient admission. Was smoking cessation discussed for >3mins.? @ -No Was critical care preformed (if so, how long)? @ -Yes, see above Were there social determinants of health that impacted care today? How? (Homelessness, low income, unemployed, alcoholism, drug addiction, transpor tation, low edu. Level, literacy, decrease access to med. care, chcf, rehab)? @ -No Was there de-escalation of care discussed even if they declined (Discuss DNR or withdrawal of care, Hospice)? DNR status @ -Patient was noted to be DO NOT RESUSCITATE What co-morbidities impacted this encounter? (DM, HTN, Smoking, COPD, CAD, Cancer, CVA, ARF, Chemo, Hep., AIDS, mental health diagnosis, sleep apnea, morbid obesity)? @ -Hypertension, pacemaker Was patient admitted / discharged? Hospital course, mention meds given and route, prescriptions, significant lab abnormalities, going to OR and other pertinent info. @ -The patient was seen and evaluated in the emergency department. Initially, the patient was seen in the medical resuscitation bay secondary to the patient's known COVID-19 in the setting of hypoxia. Workup was obtained including sepsis and the patient was likely septic at this time secondary to possible superimposed healthcare associated pneumonia in the setting of COVID-19. The patient had blood cultures obtained but was given vancomycin and cefepime for possible healthcare associated pneumonia. Due to the patient's sepsis in the setting of COVID-19, the patient will be admitted for further workup and evaluation. The patient was agreeable to this as well as her family and the patient wasn't in stable condition. Undiagnosed new problem with uncertain prognosis? @ -No Drug Therapy requiring intensive monitoring for toxicity (Heparin, Nitro, Insulin, Cardizem)? @ -No Were any procedures done? @ -No Diagnosis/symptom? @ -Sepsis secondary to healthcare associated pneumonia, COVID-19 Acute, or Chronic, or Acute on Chronic? @ -Acute Uncomplicated (without systemic symptoms) or Complicated (systemic symptoms)? @ -Complicated Side effects of treatment? @ -No Exacerbation, Progression, or Severe Exacerbation? @ -No Poses a threat to life or bodily function? How? (Chest pain, USA, RI, pneumonia, PE, COPD, DKA, ARF, appy, cholecystitis, CVA, Diverticulitis, Homicidal, Suicidal, threat to staff... and all critical care pts) @ -Yes, continued sepsis can lead to end organ damage as well as possible . - Lab Data Result diagrams: 10/07/22 18:14 10/07/22 18:14 Lab Results 08/03/3110/07/22 10/07/22 Range/Units 18:14 18:14 18:14 WBC 2.1 L (3.8-10.6) k/uL RBC 2.43 L (3.80-5.40) m/uL Hgb 7.2 L D (11.4-16.0) gm/dL Hct 23.2 L (34.0-46.0) % MCV 95.4 (80.0-100.0) fL MCH 29.5 (25.0-35.0) pg MCHC 30.9 L (31.0-37.0) g/dL RDW 15.9 H (11.5-15.5) % Plt Count 73 L D (150-450) k/uL MPV 9.1 Neutrophils % 78 % Lymphocytes % 10 % Monocytes % 10 % Eosinophils % 1 % Basophils % 0 % Neutrophils # 1.7 (1.3-7.7) k/uL Lymphocytes # 0.2 L (1.0-4.8) k/uL Monocytes # 0.2 (0-1.0) k/uL Eosinophils # 0.0 (0-0.7) k/uL Basophils # 0.0 (0-0.2) k/uL Manual Slide Review Performed Hypochromasia Moderate Poikilocytosis (manual Present Crenated Cell Present PT 12.2 H (9.0-12.0) sec INR 1.2 H (<1.2) APTT 27.7 (22.0-30.0) sec Sodium 137 (137-145) mmol/L Potassium 4.0 (3.5-5.1) mmol/L Chloride 116 H (98-107) mmol/L Carbon Dioxide 18 L (22-30) mmol/L Anion Gap 3 mmol/L BUN 23 H (7-17) mg/dL Creatinine 0.59 (0.52-1.04) mg/dL Est GFR (CKD-EPI)AfAm >90 (>60 ml/min/1.73 sqM) Est GFR (CKD-EPI)NonAf 85 (>60 ml/min/1.73 sqM) Glucose 63 L (74-99) mg/dL Plasma Lactic Acid Vitaliy (0.7-2.0) mmol/L Calcium 7.0 L (8.4-10.2) mg/dL Magnesium 1.7 (1.6-2.3) mg/dL Total Bilirubin 0.8 (0.2-1.3) mg/dL AST 289 H (14-36) U/L ALT 424 H (4-34) U/L Alkaline Phosphatase 137 H (38-126) U/L Troponin I (0.000-0.034) ng/mL NT-Pro-B Natriuret Pep 4090 pg/mL Total Protein 3.9 L (6.3-8.2) g/dL Albumin 1.7 L (3.5-5.0) g/dL 10/07/22 10/07/22 Range/Units 18:14 18:30 WBC (3.8-10.6) k/uL RBC (3.80-5.40) m/uL Hgb (11.4-16.0) gm/dL Hct (34.0-46.0) % MCV (80.0-100.0) fL MCH (25.0-35.0) pg MCHC (31.0-37.0) g/dL RDW (11.5-15.5) % Plt Count (150-450) k/uL MPV Neutrophils % % Lymphocytes % % Monocytes % % Eosinophils % % Basophils % % Neutrophils # (1.3-7.7) k/uL Lymphocytes # (1.0-4.8) k/uL Monocytes # (0-1.0) k/uL Eosinophils # (0-0.7) k/uL Basophils # (0-0.2) k/uL Manual Slide Review Hypochromasia Poikilocytosis (manual Crenated Cell PT (9.0-12.0) sec INR (<1.2) APTT (22.0-30.0) sec Sodium (137-145) mmol/L Potassium (3.5-5.1) mmol/L Chloride (98-107) mmol/L Carbon Dioxide (22-30) mmol/L Anion Gap mmol/L BUN (7-17) mg/dL Creatinine (0.52-1.04) mg/dL Est GFR (CKD-EPI)AfAm (>60 ml/min/1.73 sqM) Est GFR (CKD-EPI)NonAf (>60 ml/min/1.73 sqM) Glucose (74-99) mg/dL Plasma Lactic Acid Vitaliy <0.5 L (0.7-2.0) mmol/L Calcium (8.4-10.2) mg/dL Magnesium (1.6-2.3) mg/dL Total Bilirubin (0.2-1.3) mg/dL AST (14-36) U/L ALT (4-34) U/L Alkaline Phosphatase (38-126) U/L Troponin I 0.015 (0.000-0.034) ng/mL NT-Pro-B Natriuret Pep pg/mL Total Protein (6.3-8.2) g/dL Albumin (3.5-5.0) g/dL Critical Care Time Critical Care Time: Yes Total Critical Care Time: 36 Disposition Clinical Impression: HCAP (healthcare-associated pneumonia), Sepsis, COVID-19 Disposition: ADMITTED IP TO THIS [facility] Condition: Stable Is patient prescribed a controlled substance at d/c from ED?: No Referrals: Roosevelt Bonilla MD [Primary Care Provider] - 1-2 days Time of Disposition: 20:15 Decision to Admit Reason: Admit from EC Decision Date: 10/07/22 Decision Time: 20:15
[2022-10-07] MEDS ORDERED: SODIUM CHLORIDE 0.9% 1,000 ML IV SCH (21:00)
[2022-10-07] MEDS ORDERED: VANCOMYCIN 1,000 MG in SODIUM CHLORIDE 0.9% 250 ML IVPB ONE (21:00)
[2022-10-08 06:03] LABS: African American GFR (CKD) 80 (>60 ml/min/1.73 sqM); Non-African American GFR(CKD) 70 (>60 ml/min/1.73 sqM)
[2022-10-08 06:49] VITALS: TEMP 97.5
[2022-10-08] MEDS ORDERED: ACETAMINOPHEN TAB 325 MG TAB PO PRN (10:21)
[2022-10-08] MEDS ORDERED: AMIODARONE 200 MG TAB PO SCH (10:30)
[2022-10-08 12:31] VITALS: PULSE 49
[2022-10-08] MEDS ORDERED: VANCOMYCIN 1,000 MG in SODIUM CHLORIDE 0.9% 250 ML IVPB SCH (14:00)
--- NOTE | 2022-10-08 17:32 | P.HPIM ---
History of Present Illness H&P Date: 10/08/22 Chief Complaint: Not feeling well This is a 22-year-old patient follows Dr. Araya. [facility]. ECF. Further ECF: At a baseline patient is able 1. Patient's pulse ox was 82% on 4 L nasal cannula. Chest was sounding crackly. Normally in room air patient is 94%. Last 24 hours patient became increasingly short of breath. Patient tested positive for COVID 19. Was put on nonrebreather mask. I spoke to the daughter, patient was able to walk to a few days ago. Last couple of days going downhill. At baseline patient is was able to recognize her daughter and able to answer simple questions. In the ER patient is felt to have pneumonia. Started on IV antibiotics. IV fluids. Started dropping blood pressure. Patient hasn't not able to give any history. Lethargic. Though awake Review of systems patient cannot tell last lethargic Past medical history to include: Diabetes mellitus, hypertension, hypothyroid, pacemaker Social history: Currently at [facility]. No smoking or alcohol Physical examination: VITAL SIGNS: 97.5, 50, 14, 58/45, 93% on 4 L GENERAL: BMI 18.6, laying in bed lethargic eyes open. EYES: Pupils equal. Conjunctiva normal. HEENT: External appearance of nose and ears normal, oral cavity dry mucous membranes, missing some teeth. NECK: JVD not able to assess; masses not palpable. HEART: First and second heart sounds are normal; no edema. LUNGS: Respiratory rate increased; coarse crackles. ABDOMEN: Soft, nontender, liver spleen not palpable, no masses palpable. PSYCH: Lethargic, not able to answer questionsl. MUSCULOSKELETAL:No Clubbing/cyanosis;muscles-grossly intact. OA NEUROLOGICAL: [Cranial nerves grossly intact; no facial asymmetry, sensation grossly preserved. Nonspecific movements. LYMPHATICS: No lymph nodes palpable in the axilla and neck INVESTIGATIONS, reviewed in the clinical context: White count 2.1 hemoglobin 7.2 platelets 73 sodium 137 potassium 4.0 bicarb 18 BUN 23 creatinine 0.5 AST 289 ALT 424 proBNP 4090 albumin 1.7 EKG tracing personally reviewed by me-paced rhythm Chest x-ray film personally reviewed by [id number] infiltrate, with possible atelectasis/effusion Assessment and plan: -Left-sided pneumonia with possible parapneumonic effusion causing sepsis shock Patient was started on IV cefepime. IV vancomycin. Blood cultures. -COVID-19 pneumonia Supportive care -Acute hypoxic respiratory failure secondary to pneumonia 4 L oxygen nasal cannula -Acute metabolic encephalopathy secondary to sepsis pneumonia -Hypotensive shock secondary to sepsis IV fluids. -Essential hypertension, currently hypotensive. 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 And a baseline patient was AO 1. -DO NOT RESUSCITATE Advance care planning: Discussed this patient's daughter over the phone. She understands patient prognosis is poor. She has decided to proceed with comfort measures. She'll be informing her brother in [place]. Supportive care is to continue. [facility] hospice was consulted. Left standby medications to keep her comfortable. Time spent for this about 25 minutes Past Medical History Past Medical History: Diabetes Mellitus, Hypertension, Liver Disease, Thyroid Disorder Additional Past Medical History / Comment(s): pt states she was a diabetic in the past but no longer takes medications or checks her blood sugar. History of Any Multi-Drug Resistant Organisms: None Reported Past Surgical History: Pacemaker Additional Past Surgical History / Comment(s): thyroid surg., pacemaker dec 2019 Past Anesthesia/Blood Transfusion Reactions: No Reported Reaction Type of Cardiac Device: Permanent Pacemaker Device Placement Date:: 2019 Past Psychological History: No Psychological Hx Reported Smoking Status: Never smoker Past Alcohol Use History: None Reported Past Drug Use History: None Reported Medications and Allergies Home Medications Medication Instructions Recorded Confirmed Type carvediloL [Coreg] 25 mg PO BID #180 tablet 08/23/20 10/07/22 Rx Amiodarone [Cordarone] 200 mg PO BID 08/06/22 10/07/22 History Cholecalciferol [Vitamin D3 (125 125 mcg PO DAILY 08/06/22 10/07/22 History Mcg = 5000 Iu)] Ferrous Sulfate [Feosol] 325 mg PO DAILY 08/06/22 10/07/22 History Vit C/E/Zn/Coppr/Lutein/Zeaxan 1 cap PO DAILY 08/06/22 10/07/22 History [Preservision Areds 2 Softgel] Acetaminophen Tab [Tylenol] 650 mg PO Q6H PRN 10/07/22 10/07/22 History Atorvastatin [Lipitor] 10 mg PO HS 10/07/22 10/07/22 History Lac-Hydrin Five External Lotion 5% 1 applic TOPICAL BID 10/07/22 10/07/22 History Losartan [Cozaar] 50 mg PO DAILY 10/07/22 10/07/22 History Allergies Allergy/AdvReac Type Severity Reaction Status Date / Time No Known Allergies Allergy Verified 10/07/22 18:34 Physical Exam Vitals: Vital Signs Temp Pulse Resp BP Pulse Ox 10/08/22 08:52 50 L 14 58/45 93 L 10/08/22 06:00 97.5 F L 50 L 16 95/71 94 L 10/08/22 02:00 97.4 F L 50 L 16 81/44 92 L 10/07/22 23:00 54 L 18 109/95 92 L 10/07/22 22:06 59 L 18 109/65 92 L 10/07/22 20:00 59 L 109/91 94 L 10/07/22 19:00 106/79 92 L 10/07/22 18:50 106/79 10/07/22 18:40 93 L 10/07/22 18:30 52 L 18 116/61 93 L 10/07/22 18:23 22 10/07/22 17:54 94.5 F L 52 L 22 93/69 92 L Intake and Output 10/07/22 10/08/22 10/08/22 22:59 06:59 14:59 Other: Weight 52.163 kg Results CBC & Chem 7: 10/07/22 18:14 10/08/22 05:26 Labs: Abnormal Lab Results - Last 24 Hours (Table) 10/07/22 10/07/22 10/07/22 Range/Units 18:14 18:14 18:14 WBC 2.1 L (3.8-10.6) k/uL RBC 2.43 L (3.80-5.40) m/uL Hgb 7.2 L D (11.4-16.0) gm/dL Hct 23.2 L (34.0-46.0) % MCHC 30.9 L (31.0-37.0) g/dL RDW 15.9 H (11.5-15.5) % Plt Count 73 L D (150-450) k/uL Lymphocytes # 0.2 L (1.0-4.8) k/uL PT 12.2 H (9.0-12.0) sec INR 1.2 H (<1.2) Chloride 116 H (98-107) mmol/L Carbon Dioxide 18 L (22-30) mmol/L BUN 23 H (7-17) mg/dL Glucose 63 L (74-99) mg/dL Plasma Lactic Acid Vitaliy (0.7-2.0) mmol/L Calcium 7.0 L (8.4-10.2) mg/dL AST 289 H (14-36) U/L ALT 424 H (4-34) U/L Alkaline Phosphatase 137 H (38-126) U/L Total Protein 3.9 L (6.3-8.2) g/dL Albumin 1.7 L (3.5-5.0) g/dL 10/07/22 Range/Units 18:30 WBC (3.8-10.6) k/uL RBC (3.80-5.40) m/uL Hgb (11.4-16.0) gm/dL Hct (34.0-46.0) % MCHC (31.0-37.0) g/dL RDW (11.5-15.5) % Plt Count (150-450) k/uL Lymphocytes # (1.0-4.8) k/uL PT (9.0-12.0) sec INR (<1.2) Chloride (98-107) mmol/L Carbon Dioxide (22-30) mmol/L BUN (7-17) mg/dL Glucose (74-99) mg/dL Plasma Lactic Acid Vitaliy <0.5 L (0.7-2.0) mmol/L Calcium (8.4-10.2) mg/dL AST (14-36) U/L ALT (4-34) U/L Alkaline Phosphatase (38-126) U/L Total Protein (6.3-8.2) g/dL Albumin (3.5-5.0) g/dL
[2022-10-08] MEDS ORDERED: ACETAMINOPHEN SUPPOSITORY 650 MG SUPP RECTAL PRN (17:33)
[2022-10-08] MEDS ORDERED: MORPHINE SULFATE 2 MG/ML SYRINGE IV PRN (17:33)
[2022-10-08] MEDS ORDERED: LORazepam 2 MG/ML INJ IV PRN (17:33)
[2022-10-08] MEDS ORDERED: ONDANSETRON 4 MG/2 ML VIAL IVP PRN (17:33)
[2022-10-08] MEDS ORDERED: DRY MOUTH SPRAY 44.3 SPRAY/44.3 ML SPRAY MUCOUS MEM PRN (17:33)
[2022-10-08] MEDS ORDERED: HALOPERIDOL LACTATE 5 MG/ML 1 ML VIAL IM PRN (17:33)
[2022-10-08] MEDS ORDERED: ARTIFICIAL TEARS-HYPROMELLOSE DROPS 15 ML BTL BOTH EYES PRN (17:33)
[2022-10-08] MEDS ORDERED: ATROPINE OPHTH SOLN 1% 5ML BTL SUBLINGUAL PRN (17:33)
[2022-10-08 18:03] VITALS: BP 49/27; RESP 14
[2022-10-08] MEDS ORDERED: ATORVASTATIN 10 MG TAB PO SCH (21:00)
--- NOTE | 2022-10-09 16:57 | P.DS ---
Providers Date of admission: 10/07/22 20:49 Expected date of discharge: 10/09/22 Attending physician: Jhonathan Vora Primary care physician: Roosevelt Bonilla MD Hospital Course: Chief Complaint: Not feeling well This is a 22-year-old patient follows Dr. Araya. [facility]. ECF. Further ECF: At a baseline patient is able 1. Patient's pulse ox was 82% on 4 L nasal cannula. Chest was sounding crackly. Normally in room air patient is 94%. Last 24 hours patient became increasingly short of breath. Patient tested positive for COVID 19. Was put on nonrebreather mask. I spoke to the daughter, patient was able to walk to a few days ago. Last couple of days going downhill. At baseline patient is was able to recognize her daughter and able to answer simple questions. In the ER patient is felt to have pneumonia. Started on IV antibiotics. IV fluids. Started dropping blood pressure. Patient hasn't not able to give any history. Lethargic. Though awake 10/09/2022: Patient is with comfort care to yesterday. this morning. Past medical history to include: Diabetes mellitus, hypertension, hypothyroid, pacemaker Social history: Currently at [facility]. No smoking or alcohol INVESTIGATIONS, reviewed in the clinical context: White count 2.1 hemoglobin 7.2 platelets 73 sodium 137 potassium 4.0 bicarb 18 BUN 23 creatinine 0.5 AST 289 ALT 424 proBNP 4090 albumin 1.7 EKG tracing personally reviewed by me-paced rhythm Chest x-ray film personally reviewed by [id number] infiltrate, with possible atelectasis/effusion Cause of : COVID-19 pneumonia Assessment and plan: -Left-sided pneumonia with possible parapneumonic effusion causing sepsis shock Patient was started on IV cefepime. IV vancomycin. Blood cultures. -COVID-19 pneumonia Supportive care -Acute hypoxic respiratory failure secondary to pneumonia 4 L oxygen nasal cannula -Acute metabolic encephalopathy secondary to sepsis pneumonia -Hypotensive shock secondary to sepsis IV fluids. -Essential hypertension, currently hypotensive. 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 And a baseline patient was AO 1. -DO NOT RESUSCITATE/Comfort Care Advance care planning: [10/08/2022] Discussed this patient's daughter over the phone. She understands patient prognosis is poor. She has decided to proceed with comfort measures. She'll be informing her brother in [place]. Supportive care is to continue. [facility] hospice was consulted. Left standby medications to keep her comfortable. Time spent for this about 25 minutes Disposition: Patient Plan - Discharge Summary Discharge Rx Participant: No New Discharge Prescriptions: No Action carvediloL [Coreg] 25 mg PO BID #180 tablet Cholecalciferol [Vitamin D3 (125 Mcg = 5000 Iu)] 125 mcg PO DAILY Vit C/E/Zn/Coppr/Lutein/Zeaxan [Preservision Areds 2 Softgel] 1 cap PO DAILY Amiodarone [Cordarone] 200 mg PO BID Losartan [Cozaar] 50 mg PO DAILY Ferrous Sulfate [Feosol] 325 mg PO DAILY Lac-Hydrin Five External Lotion 5% 1 applic TOPICAL BID Acetaminophen Tab [Tylenol] 650 mg PO Q6H PRN PRN Reason: Fever And/ Or Pain Atorvastatin [Lipitor] 10 mg PO HS Discharge Medication List carvediloL [Coreg] 25 mg PO BID #180 tablet 08/23/20 [Rx] Amiodarone [Cordarone] 200 mg PO BID 08/06/22 [History] Cholecalciferol [Vitamin D3 (125 Mcg = 5000 Iu)] 125 mcg PO DAILY 08/06/22 [History] Ferrous Sulfate [Feosol] 325 mg PO DAILY 08/06/22 [History] Vit C/E/Zn/Coppr/Lutein/Zeaxan [Preservision Areds 2 Softgel] 1 cap PO DAILY 08/06/22 [History] Acetaminophen Tab [Tylenol] 650 mg PO Q6H PRN 10/07/22 [History] Atorvastatin [Lipitor] 10 mg PO HS 10/07/22 [History] Lac-Hydrin Five External Lotion 5% 1 applic TOPICAL BID 10/07/22 [History] Losartan [Cozaar] 50 mg PO DAILY 10/07/22 [History] Discharge Disposition: - Preliminary Cause of Preliminary Cause of : COVID-19 pneumonia
== END 2022-10-09 08:31 | disposition expired | DRG 871 ==
LOC: EC 17:52 → 4SSUR 20:49 → 5NMEDONC 23:31 → 4SSUR 10-08 00:07
PROVIDERS: ADMIT Hospitalist; ATTEND Hospitalist
DX: A41.89 Other specified sepsis (principal); G93.41 Metabolic encephalopathy; U07.1 COVID-19; R65.21 Severe sepsis with septic shock; J96.01 Acute respiratory failure with hypoxia; J12.82 Pneumonia due to coronavirus disease 2019; J44.0 Chronic obstructive pulmonary disease with (acute) lower respiratory infection; Z66 Do not resuscitate; Z51.5 Encounter for palliative care; I95.89 Other hypotension; E03.9 Hypothyroidism, unspecified; E11.9 Type 2 diabetes mellitus without complications; I10 Essential (primary) hypertension; Z95.0 Presence of cardiac pacemaker; G30.1 Alzheimer's disease with late onset; F02.80 Dementia in other diseases classified elsewhere, unspecified severity, without behavioral disturbance, psychotic disturbance, mood disturbance, and anxiety; Y95 Nosocomial condition; Z79.899 Other long term (current) drug therapy
CPT/HCPCS: 36415; 51798; 71046; 80053; 82565; 83605; 83735; 83880; 84484; 85025; 85610; 85730; 87040; 93005; 96365; 96366; 96367; 99291